=== PATIENT | female | born 1925 | race Caucasian/White ===

== ENCOUNTER 2016-12-21 20:47 | Inpatient (IN) | payer MEDICARE, MEDICAID ==
--- NOTE | 2016-12-21 22:03 | ER Document Report ---
ED General - General Chief Complaint: Shortness Of Breath Stated Complaint: SHORTNESS OF BREATH Cannot obtain history due to: Unstable vital signs, Altered mental status Notes: Patient is an 89-year-old female past medical history of COPD chronic nasal cannula oxygen dependence, dementia, blindness, hypertension who presents from her nursing facility with concerns of increased difficulty breathing and altered mental status. Family noted that the patient had increased work of breathing today when they were visiting her and staff noticed that patient to be less oriented than normal. She does have a history of similar presentations in the past. Family state that often she gets like this and she has a urinary tract infection. She does have a chronic indwelling catheter. Patient is otherwise unable to provide meaningful history, does not follow commands TRAVEL OUTSIDE OF THE [place] IN LAST 30 DAYS: No - Related Data Allergies/Adverse Reactions: codeine [Codeine] Allergy (Verified 09/06/16 22:58) Past Medical History - General Information source: Relative Cannot obtain history due to: Altered mental status - Social History Smoking Status: Former Smoker Frequency of alcohol use: None Drug Abuse: None Lives with: Intermediate Family History: Reviewed & Not Pertinent - Past Medical History Cardiac Medical History: Reports: Hx Hypertension Denies: Hx Congestive Heart Failure, Hx DVT, Hx Heart Attack, Hx Hypercholesterolemia, Hx Pulmonary Embolism Pulmonary Medical History: 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 Denies: Hx Seizures Endocrine Medical History: Denies: Hx Diabetes Mellitus Type 1, Hx Diabetes Mellitus Type 2, Hx Hyperthyroidism, Hx Hypothyroidism Renal/ Medical History: Denies: Hx Peritoneal Dialysis GI Medical History: Reports: Hx Gastroesophageal Reflux Disease, Hx Hiatal Hernia. Denies: Hx Cirrhosis, Hx Hepatitis Musculoskeltal Medical History: Reports Hx Arthritis Skin Medical History: Denies Hx Eczema, Denies Hx Psoriasis Psychiatric Medical History: Reports: Hx Depression - No suicidal or homicidal ideation. Infectious Medical History: Denies: Hx Hepatitis Past Surgical History: Reports: Hx Orthopedic Surgery - Hip - Immunizations Hx Diphtheria, Pertussis, Tetanus Vaccination: Yes Hx Pneumococcal Vaccination: 09/25/12 Review of Systems - Review of Systems -: Yes ROS unobtainable due to patient's medical condition Physical Exam - Vital signs Vitals: Pulse Ox 99 12/21/16 20:53 Interpretation: Tachycardic Notes: PHYSICAL EXAMINATION: GENERAL: Frail, elderly woman who appears stated age HEAD: Atraumatic, normocephalic. EYES: Pupils equal round and reactive to light, extraocular movements intact, sclera anicteric, conjunctiva are normal. ENT: nares patent, oropharynx clear without exudates. Moderately dry mucous membranes. NECK: Normal range of motion, supple without lymphadenopathy LUNGS: Breath sounds clear to auscultation bilaterally and equal. No wheezes rales or rhonchi. HEART: Regular tachycardia without murmurs ABDOMEN: Soft, nontender, normoactive bowel sounds. No guarding, no rebound. No masses appreciated. EXTREMITIES: no pitting or edema. No cyanosis. NEUROLOGICAL: Moves all extremities spontaneously but will not follow commands. She does not speak to me but does open her eyes when addressed PSYCH: Nonverbal SKIN: Warm, Dry, normal turgor, there is a well-healing wound of the left heel. No surrounding cellulitis or purulent drainage Course - Re-evaluation Re-evalutation: 12/21/160 When to assess the patient and found to be obtunded on BiPAP. Had not been notified about the critical nature of this patient prior to my assessment. Patient is unable to even state her name. Falling asleep despite multiple attempts to wake her up. She is moving air except well in all lung early without any significant wheezing. Primary concern is hypercarbic encephalopathy given clinical history. Patient is a very poor candidate for intubation given her chronic medical conditions and advanced age. Will proceed with labs including an arterial blood gas and reassess. Patient is critically ill. 12/21/16 22:36 ABG shows an elevated PCO2 but normal blood pH making this consistent with a chronic CO2 elevation and I do not believe at this point that her presentation is consistent with hypercarbic encephalopathy. Patient has had similar presentations in the past secondary to a pyelonephritis causing encephalopathy and her urine does look visibly cloudy. Catheter will be changed out and urine sample obtained. Will also obtain a CT of the head to evaluate for an acute intracranial bleed is the etiology of her altered mental status. BiPAP discontinued at this time and she will be transitioned back towards her home nasal cannula. 12/22/16 03:17 Workup has been unrevealing at this time with urinalysis being unremarkable, chest x-ray and CT the head likewise without notable findings. Patient has remained tachycardic despite fluid resuscitation with her heart rate generally resting in the 120s. Patient has not recently received any beta agonists that could be triggering. At this point given patient's initial concern EMS was shortness of breath in conjunction with her altered mental status. Will obtain a CT scan of the chest to evaluate for pneumonia that is not visible on chest x- ray. Regardless, patient will require admission given her altered mental status and ongoing tachycardia 12/22/16 04:11 I discussed the findings of this chest CT with the radiologist who does not note any acute findings to suggest an etiology of patient's tachycardia or altered mental status. At this point the exact etiology of patient's ongoing tachycardia and altered mental status is unclear despite an extensive workup. Her tachycardia likewise has been only minimally responsive to IV fluids and her urinalysis and chemistries do not suggest a significant component of dehydration. I discussed this case with the hospitalist Dr. Saavedra for admission given patient's tachycardia and ongoing altered mental status. She will be admitted. - Vital Signs Vital signs: Temp Pulse Resp BP Pulse Ox 24 H 99/53 L 95 12/21/16 23:01 12/22/16 03:36 12/22/16 03:36 - Laboratory Result Diagrams: 12/21/16 21:10 12/21/16 21:10 Laboratory results interpreted by me: 12/21/16 12/21/16 12/21/16 21:10 21:10 22:10 WBC 10.7 H RBC 3.62 L Hgb 10.2 L Hct 30.9 L RDW 15.1 H Plt Count 467 H Carbonic Acid 1.87 H ABG pCO2 62.1 H ABG pO2 72.5 L ABG HCO3 34.4 H ABG Total CO2 36.3 H ABG O2 Saturation 93.6 L Sodium 128.0 L Potassium 5.1 H Chloride 83 L Carbon Dioxide 34 H BUN 26 H Creatinine 0.44 L Glucose 141 H Urine Ketones Urine Blood Ur Leukocyte Esterase 12/22/16 01:02 WBC RBC Hgb Hct RDW Plt Count Carbonic Acid ABG pCO2 ABG pO2 ABG HCO3 ABG Total CO2 ABG O2 Saturation Sodium Potassium Chloride Carbon Dioxide BUN Creatinine Glucose Urine Ketones 20 H Urine Blood MODERATE H Ur Leukocyte Esterase TRACE H Critical Care Note - Critical Care Note Total time excluding time spent on procedures (mins): 40 Comments: Critical care time spent obtaining history from patient or surrogate, discussions with consultants, development of treatment plan with patient or surrogate, evaluation of patient's response to treatment, examination of patient , ordering and performing treatments and interventions, ordering and review of laboratory studies, re-evaluation of patient's condition, ordering and review of radiographic studies and review of old charts Discharge - Discharge Clinical Impression: COPD (chronic obstructive pulmonary disease) Qualifiers: COPD type: unspecified COPD Qualified Code(s): J44.9 - Chronic obstructive pulmonary disease, unspecified Altered mental status Qualifiers: Altered mental status type: unspecified Qualified Code(s): R41.82 - Altered mental status, unspecified Condition: Fair Disposition: ADMITTED INPATIENT Admitting Provider: [facility] Admitted: Telemetry
[2016-12-21] MEDS ORDERED: ALBUTEROL SULFATE 0.083% NEB 2.5 MG/3 ML AMPUL NEB ONE ×2 (22:04→22:24)
[2016-12-21 22:14] LABS: ABSOLUTE EOSINOPHILS # (AUTO) 0.1 10^3/uL (0.0-0.6); ABSOLUTE LYMPHOCYTES (AUTO) 2.5 10^3/uL (0.5-4.7); ABSOLUTE MONOCYTES (AUTO) 0.8 10^3/uL (0.1-1.4); ABSOLUTE NEUT (AUTO) 7.3 10^3/uL (1.7-8.2); BASOPHILS % (AUTO) 0.4 % (0-2); EOSINOPHILS % (AUTO) 1.2 % (0-6); HEMATOCRIT 30.9 % (36.0-47.0); HEMOGLOBIN 10.2 g/dL (12.0-15.5); HGB HCT DIFFERENCE -0.3; LYMPHOCYTES % (AUTO) 22.9 % (13-45); MEAN CORPUSCULAR HEMOGLOBIN 28.3 pg (27.0-33.4); MEAN CORPUSCULAR HGB CONC 33.1 g/dL (32.0-36.0); MEAN CORPUSCULAR VOLUME 86 fl (80-97); MONOCYTES % (AUTO) 7.6 % (3-13); RED BLOOD COUNT 3.62 10^6/uL (3.72-5.28); RED CELL DISTRIBUTION WIDTH 15.1 % (11.5-14.0); SEGMENTED NEUTROPHILS % (AUTO) 67.9 % (42-78); WHITE BLOOD COUNT 10.7 10^3/uL (4.0-10.5)
[2016-12-21 22:20] LABS: ALANINE AMINOTRANSFERASE 32 U/L (9-52); ALBUMIN 4.1 g/dL (3.5-5.0); ALKALINE PHOSPHATASE 75 U/L (38-126); ANION GAP 11 (5-19); ASPARTATE AMINO TRANSFERASE 30 U/L (14-36); BILIRUBIN,DIRECT 0.3 mg/dL (0.0-0.4); BILIRUBIN,TOTAL 0.5 mg/dL (0.2-1.3); BLOOD UREA NITROGEN 26 mg/dL (7-20); CALCIUM 10.2 mg/dL (8.4-10.2); CARBON DIOXIDE 34 mmol/L (22-30); CHLORIDE 83 mmol/L (98-107); CREATININE RESULT 0.44 mg/dL (0.52-1.25); GLUCOSE 141 mg/dL (75-110); POTASSIUM 5.1 mmol/L (3.6-5.0); TOTAL PROTEIN 6.4 g/dL (6.3-8.2)
[2016-12-21 22:24] LABS: ARTERIAL BLOOD BASE EXCESS 7.4 mmol/L; ARTERIAL BLOOD O2 SATURATION 93.6 % (94-98)
[2016-12-22] MEDS ORDERED: NORMAL SALINE 1000 ML 1,000 ML IV ONE ×2 (00:02→02:02)
[2016-12-22 01:32] LABS: APPEARANCE,URINE SLIGHTLY-CLOUDY; BILIRUBIN,URINE NEGATIVE (NEGATIVE); GLUCOSE, URINE NEGATIVE (NEGATIVE); KETONES,URINE 20 mg/dL (NEGATIVE); LEUKOCYTE ESTERASE,URINE TRACE (NEGATIVE); NITRITE,URINE NEGATIVE (NEGATIVE); PROTEIN,URINE NEGATIVE (NEGATIVE); URINE SPECIFIC GRAVITY 1.012; UROBILINOGEN,URINE NEGATIVE mg/dL (<2.0)
[2016-12-22] MEDS ORDERED: PIPERACILLIN/TAZOBACTAM 3.375 GM VIAL IV ONE (03:14)
[2016-12-22] MEDS ORDERED: LACTULOSE SYRUP 20 GM/30 ML UDCUP PO ONE (04:30)
[2016-12-22] MEDS ORDERED: LACTULOSE SYRUP 20 GM/30 ML UDCUP PR ONE (04:30)
[2016-12-22] MEDS ORDERED: ONDANSETRON HCL INJ/PF 4 MG/2 ML SDV IV PRN (05:41)
[2016-12-22] MEDS ORDERED: MAGNESIUM HYDROXIDE SUSP 30 ML UDCUP PO ONE (06:00)
[2016-12-22] MEDS: HEPARIN SOD (PORCINE) 5,000 UNIT/ML 1 ML SYRINGE SUBCUT SCH ×3 (07:58→21:41)
[2016-12-22] MEDS ORDERED: BUDESONIDE/FORMOTEROL 80-4.5 MCG 60 PUFF/6.9 GM MDI IH SCH (08:00)
--- NOTE | 2016-12-22 08:18 | EKG REPORT ---
SEVERITY:- ABNORMAL ECG - SINUS TACHYCARDIA LEFT VENTRICULAR HYPERTROPHY : Confirmed by: Matilde Hansen 22-Dec-2016 08:17:09
[2016-12-22] MEDS: IPRATROPIUM/ALBUTEROL 0.5-2.5 MG/3 ML AMPUL NEB SCH ×3 (08:38→23:45)
[2016-12-22] MEDS: TIOTROPIUM BROMIDE DPI 5 CAP/KIT (18 MCG/CAP) IH SCH (09:34)
[2016-12-22] MEDS: DOCUSATE SODIUM 100 MG CAPSULE PO SCH ×2 (09:34→17:32)
[2016-12-22] MEDS ORDERED: TIOTROPIUM BROMIDE 2.5 MCG IH SCH (10:00)
--- NOTE | 2016-12-22 11:37 | PDOC PROGRESS REPORT ---
Subjective Progress Note for:: 12/22/16 Subjective:: Patient is somnolent but will arouse to painful stimuli. She was not wearing her BiPAP the time my initial exam. Physical Exam Vital Signs: Temp Pulse Resp BP Pulse Ox 98.3 F 77 20 117/45 L 98 12/22/16 07:00 12/22/16 08:35 12/22/16 08:35 12/22/16 07:00 12/22/16 08:35 Intake & Output 12/21/16 12/22/16 12/23/16 06:59 06:59 06:59 Weight 56.1 kg General appearance: PRESENT: mild distress Eye exam: PRESENT: conjunctiva pink. ABSENT: scleral icterus Mouth exam: PRESENT: moist, tongue midline Neck exam: ABSENT: JVD Respiratory exam: PRESENT: rhonchi - Coarse rhonchi bilaterally.. ABSENT: rales , wheezes Cardiovascular exam: PRESENT: RRR. ABSENT: diastolic murmur, rubs, systolic murmur GI/Abdominal exam: PRESENT: normal bowel sounds, soft. ABSENT: distended, guarding, mass, organolmegaly, rebound, tenderness Extremities exam: ABSENT: calf tenderness, clubbing, pedal edema Neurological exam: PRESENT: alert, awake, oriented to person, oriented to place , oriented to time, oriented to situation, CN II-XII grossly intact. ABSENT: motor sensory deficit Psychiatric exam: PRESENT: appropriate affect Skin exam: PRESENT: dry, intact, warm. ABSENT: cyanosis, rash Results Impressions: Chest X-Ray 12/21/16 22:02 IMPRESSION: NO ACUTE RADIOGRAPHIC FINDING IN THE CHEST. Head CT 12/21/16 22:31 IMPRESSION: No acute findings. Stable left thalamic lacunar infarct. Chest CT 12/22/16 02:00 IMPRESSION: 1. Worsened moderate L1 anterior compression deformity. 2. Chronic 4.1 cm and descending thoracic aortic aneurysm. 3. Chronic right hemidiaphragmatic elevation. 4. Bilateral lower lobar scar-fibrosis without suspicious interval change since June 2016. 5. A previously described suspicious right renal mass is not included in the imaging field compared with prior CT from June 2016. Assessment & Plan - Diagnosis (1) Hypercapnic respiratory failure Is this a current diagnosis for this admission?: YesPlan: The patient had taken off her BiPAP shortly before I saw her. She was difficult to arouse. We we'll restart her BiPAP and monitor. The cause is most likely related to her acute COPD. (2) Encephalopathy Is this a current diagnosis for this admission?: YesPlan: Most likely secondary to her COPD. (3) COPD (chronic obstructive pulmonary disease) Qualifiers: COPD type: unspecified COPD Qualified Code(s): J44.9 - Chronic obstructive pulmonary disease, unspecified Is this a current diagnosis for this admission?: YesPlan: Continue with nebulizers and BiPAP as needed. (4) Hyponatremia Is this a current diagnosis for this admission?: Yes (5) Chronic indwelling Cade catheter Is this a current diagnosis for this admission?: Yes (6) Hyperkalemia Is this a current diagnosis for this admission?: YesPlan: We'll continue to monitor. (7) Hypertension Qualifiers: Hypertension type: essential hypertension Qualified Code(s): I10 - Essential (primary) hypertension Is this a current diagnosis for this admission?: YesPlan: Patient's blood pressure has been on the low end of normal. (8) Lung mass Is this a current diagnosis for this admission?: Yes (9) Do not resuscitate Is this a current diagnosis for this admission?: Yes - Time Time Spent with patient: 25-34 minutes - Inpatient Certification Medical Necessity: Need Close Monitoring Due to Risk of Patient Decompensation
[2016-12-22] MEDS: BUDESONIDE/FORMOTEROL 80-4.5 MCG 60 PUFF/6.9 GM MDI IH SCH (21:44)
[2016-12-23] MEDS: ACETAMINOPHEN 325 MG TABLET PO PRN (04:54)
[2016-12-23] MEDS: HEPARIN SOD (PORCINE) 5,000 UNIT/ML 1 ML SYRINGE SUBCUT SCH ×3 (05:24→21:34)
[2016-12-23 06:09] LABS: ABSOLUTE EOSINOPHILS # (AUTO) 0.1 10^3/uL (0.0-0.6); ABSOLUTE LYMPHOCYTES (AUTO) 1.6 10^3/uL (0.5-4.7); ABSOLUTE MONOCYTES (AUTO) 0.7 10^3/uL (0.1-1.4); BASOPHILS % (AUTO) 0.3 % (0-2); EOSINOPHILS % (AUTO) 0.8 % (0-6); HEMATOCRIT 23.6 % (36.0-47.0); HGB HCT DIFFERENCE 0.7; LYMPHOCYTES % (AUTO) 18.9 % (13-45); MEAN CORPUSCULAR HEMOGLOBIN 29.2 pg (27.0-33.4); MEAN CORPUSCULAR HGB CONC 34.2 g/dL (32.0-36.0); MEAN CORPUSCULAR VOLUME 86 fl (80-97); MONOCYTES % (AUTO) 8.2 % (3-13); RED BLOOD COUNT 2.76 10^6/uL (3.72-5.28); RED CELL DISTRIBUTION WIDTH 15.1 % (11.5-14.0); SEGMENTED NEUTROPHILS % (AUTO) 71.8 % (42-78); WHITE BLOOD COUNT 8.4 10^3/uL (4.0-10.5)
[2016-12-23 06:14] LABS: ANION GAP 9 (5-19); BLOOD UREA NITROGEN 19 mg/dL (7-20); CALCIUM 9.9 mg/dL (8.4-10.2); CARBON DIOXIDE 34 mmol/L (22-30); CHLORIDE 91 mmol/L (98-107); CREATININE RESULT 0.42 mg/dL (0.52-1.25); GLUCOSE 115 mg/dL (75-110); POTASSIUM 4.4 mmol/L (3.6-5.0); SODIUM 133.8 mmol/L (137-145)
[2016-12-23 06:16] LABS: HEMOGLOBIN 8.1 g/dL (12.0-15.5)
[2016-12-23] MEDS: IPRATROPIUM/ALBUTEROL 0.5-2.5 MG/3 ML AMPUL NEB SCH ×3 (08:25→23:37)
[2016-12-23] MEDS: TIOTROPIUM BROMIDE DPI 5 CAP/KIT (18 MCG/CAP) IH SCH (09:38)
[2016-12-23] MEDS: BUDESONIDE/FORMOTEROL 80-4.5 MCG 60 PUFF/6.9 GM MDI IH SCH ×2 (09:38→21:34)
[2016-12-23] MEDS: DOCUSATE SODIUM 100 MG CAPSULE PO SCH ×2 (09:38→18:05)
[2016-12-23] MEDS: BUTALB/ACETAMINOPHEN/CAFFEINE 1 TAB EACH PO PRN ×2 (09:40→18:08)
--- NOTE | 2016-12-23 10:23 | PDOC PROGRESS REPORT ---
Subjective Progress Note for:: 12/23/16 Subjective:: Patient is more awake today and complains of a headache. Physical Exam Vital Signs: Temp Pulse Resp BP Pulse Ox 97.7 F 105 H 20 136/63 H 99 12/23/16 03:59 12/23/16 08:25 12/23/16 08:25 12/23/16 03:59 12/23/16 08:25 Intake & Output 12/22/16 12/23/16 12/24/16 06:59 06:59 06:59 Intake Total 603 Output Total 1000 Balance -397 Weight 56 kg General appearance: PRESENT: no acute distress Eye exam: PRESENT: conjunctiva pink. ABSENT: scleral icterus Mouth exam: PRESENT: moist, tongue midline Neck exam: ABSENT: JVD Respiratory exam: PRESENT: wheezes - Scattered expiratory wheezes. ABSENT: rales, rhonchi Cardiovascular exam: PRESENT: RRR. ABSENT: diastolic murmur, rubs, systolic murmur GI/Abdominal exam: PRESENT: normal bowel sounds, soft. ABSENT: distended, guarding, mass, organolmegaly, rebound, tenderness Extremities exam: ABSENT: calf tenderness, clubbing, pedal edema Neurological exam: PRESENT: alert, awake, oriented to person, oriented to place , oriented to time, oriented to situation, CN II-XII grossly intact. ABSENT: motor sensory deficit Psychiatric exam: PRESENT: appropriate affect Skin exam: PRESENT: dry, intact, warm. ABSENT: cyanosis, rash Results Laboratory Results: 12/23/16 04:48 12/23/16 04:48 12/23/16 12/23/16 04:48 04:48 WBC 8.4 RBC 2.76 L Hgb 8.1 L D Hct 23.6 L MCV 86 MCH 29.2 MCHC 34.2 RDW 15.1 H Plt Count 404 Seg Neutrophils % 71.8 Lymphocytes % 18.9 Monocytes % 8.2 Eosinophils % 0.8 Basophils % 0.3 Absolute Neutrophils 6.0 Absolute Lymphocytes 1.6 Absolute Monocytes 0.7 Absolute Eosinophils 0.1 Absolute Basophils 0.0 Sodium 133.8 L Potassium 4.4 Chloride 91 L Carbon Dioxide 34 H Anion Gap 9 BUN 19 Creatinine 0.42 L Est GFR ( Amer) > 60 Est GFR (Non-Af Amer) > 60 Glucose 115 H Calcium 9.9 Impressions: Chest X-Ray 12/21/16 22:02 IMPRESSION: NO ACUTE RADIOGRAPHIC FINDING IN THE CHEST. Head CT 12/21/16 22:31 IMPRESSION: No acute findings. Stable left thalamic lacunar infarct. Chest CT 12/22/16 02:00 IMPRESSION: 1. Worsened moderate L1 anterior compression deformity. 2. Chronic 4.1 cm and descending thoracic aortic aneurysm. 3. Chronic right hemidiaphragmatic elevation. 4. Bilateral lower lobar scar-fibrosis without suspicious interval change since June 2016. 5. A previously described suspicious right renal mass is not included in the imaging field compared with prior CT from June 2016. Assessment & Plan - Diagnosis (1) Hypercapnic respiratory failure Is this a current diagnosis for this admission?: YesPlan: The cause is most likely related to her acute COPD. (2) Encephalopathy Is this a current diagnosis for this admission?: YesPlan: Most likely secondary to her COPD. It has improved from yesterday. She is much more alert today. (3) COPD (chronic obstructive pulmonary disease) Qualifiers: COPD type: unspecified COPD Qualified Code(s): J44.9 - Chronic obstructive pulmonary disease, unspecified Is this a current diagnosis for this admission?: YesPlan: Continue with nebulizers and BiPAP as needed. (4) Hyponatremia Is this a current diagnosis for this admission?: YesPlan: Improving. (5) Chronic indwelling Cade catheter Is this a current diagnosis for this admission?: Yes (6) Hyperkalemia Is this a current diagnosis for this admission?: YesPlan: We'll continue to monitor. (7) Hypertension Qualifiers: Hypertension type: essential hypertension Qualified Code(s): I10 - Essential (primary) hypertension Is this a current diagnosis for this admission?: YesPlan: Patient's blood pressure has been on the low end of normal. (8) Lung mass Is this a current diagnosis for this admission?: Yes (9) Do not resuscitate Is this a current diagnosis for this admission?: Yes (10) Anemia Is this a current diagnosis for this admission?: Yes - Time Time Spent with patient: 25-34 minutes - Inpatient Certification Medical Necessity: Need Close Monitoring Due to Risk of Patient Decompensation
[2016-12-23] MEDS: CARBOXYMETHYLCELLULOSE SOD 0.5% 0.4 ML DROPERETTE OU PRN (14:31)
[2016-12-24 04:46] LABS: ABSOLUTE EOSINOPHILS # (AUTO) 0.2 10^3/uL (0.0-0.6); ABSOLUTE LYMPHOCYTES (AUTO) 1.8 10^3/uL (0.5-4.7); ABSOLUTE MONOCYTES (AUTO) 0.5 10^3/uL (0.1-1.4); ABSOLUTE NEUT (AUTO) 3.6 10^3/uL (1.7-8.2); BASOPHILS % (AUTO) 0.5 % (0-2); EOSINOPHILS % (AUTO) 3.1 % (0-6); HEMATOCRIT 24.5 % (36.0-47.0); HEMOGLOBIN 8.2 g/dL (12.0-15.5); HGB HCT DIFFERENCE 0.1; LYMPHOCYTES % (AUTO) 29.8 % (13-45); MEAN CORPUSCULAR HEMOGLOBIN 28.8 pg (27.0-33.4); MEAN CORPUSCULAR HGB CONC 33.6 g/dL (32.0-36.0); MEAN CORPUSCULAR VOLUME 86 fl (80-97); MONOCYTES % (AUTO) 7.6 % (3-13); RED BLOOD COUNT 2.87 10^6/uL (3.72-5.28); RED CELL DISTRIBUTION WIDTH 15.3 % (11.5-14.0); WHITE BLOOD COUNT 6.1 10^3/uL (4.0-10.5)
[2016-12-24 04:55] LABS: ANION GAP 10 (5-19); BLOOD UREA NITROGEN 12 mg/dL (7-20); CALCIUM 9.7 mg/dL (8.4-10.2); CARBON DIOXIDE 33 mmol/L (22-30); CHLORIDE 92 mmol/L (98-107); CREATININE RESULT 0.44 mg/dL (0.52-1.25); GLUCOSE 98 mg/dL (75-110); POTASSIUM 4.2 mmol/L (3.6-5.0); SODIUM 135.3 mmol/L (137-145)
[2016-12-24] MEDS: HEPARIN SOD (PORCINE) 5,000 UNIT/ML 1 ML SYRINGE SUBCUT SCH ×3 (05:14→23:20)
[2016-12-24] MEDS: BUTALB/ACETAMINOPHEN/CAFFEINE 1 TAB EACH PO PRN ×2 (09:29→17:54)
[2016-12-24] MEDS: IPRATROPIUM/ALBUTEROL 0.5-2.5 MG/3 ML AMPUL NEB SCH ×3 (09:29→23:03)
[2016-12-24] MEDS: BUDESONIDE/FORMOTEROL 80-4.5 MCG 60 PUFF/6.9 GM MDI IH SCH ×2 (09:29→23:20)
[2016-12-24] MEDS: TIOTROPIUM BROMIDE DPI 5 CAP/KIT (18 MCG/CAP) IH SCH (09:29)
[2016-12-24] MEDS: DOCUSATE SODIUM 100 MG CAPSULE PO SCH ×2 (09:31→17:49)
--- NOTE | 2016-12-24 11:02 | PDOC PROGRESS REPORT ---
Subjective Progress Note for:: 12/24/16 Subjective:: Patient complains of a headache. Physical Exam Vital Signs: Temp Pulse Resp BP Pulse Ox 97.5 F 88 18 138/67 H 100 12/24/16 08:02 12/24/16 08:02 12/24/16 08:02 12/24/16 04:56 12/24/16 08:02 Intake & Output 12/23/16 12/24/16 12/25/16 06:59 06:59 06:59 Intake Total 603 476 Output Total 1000 2500 Balance -397 -2023 Weight 56 kg 65.9 kg General appearance: PRESENT: no acute distress Eye exam: PRESENT: conjunctiva pink. ABSENT: scleral icterus Mouth exam: PRESENT: moist, tongue midline Neck exam: ABSENT: JVD Respiratory exam: PRESENT: rhonchi - Scattered bilateral rhonchi. ABSENT: rales , wheezes Cardiovascular exam: PRESENT: RRR. ABSENT: diastolic murmur, rubs, systolic murmur GI/Abdominal exam: PRESENT: normal bowel sounds, soft. ABSENT: distended, guarding, mass, organolmegaly, rebound, tenderness Extremities exam: ABSENT: calf tenderness, clubbing, pedal edema Neurological exam: PRESENT: alert, awake, oriented to person, oriented to place Psychiatric exam: PRESENT: appropriate affect Skin exam: PRESENT: dry, intact, warm. ABSENT: cyanosis, rash Results Laboratory Results: 12/24/16 04:18 12/24/16 04:18 12/24/16 12/24/16 04:18 04:18 WBC 6.1 RBC 2.87 L Hgb 8.2 L Hct 24.5 L MCV 86 MCH 28.8 MCHC 33.6 RDW 15.3 H Plt Count 374 Seg Neutrophils % 59.0 Lymphocytes % 29.8 Monocytes % 7.6 Eosinophils % 3.1 Basophils % 0.5 Absolute Neutrophils 3.6 Absolute Lymphocytes 1.8 Absolute Monocytes 0.5 Absolute Eosinophils 0.2 Absolute Basophils 0.0 Sodium 135.3 L Potassium 4.2 Chloride 92 L Carbon Dioxide 33 H Anion Gap 10 BUN 12 Creatinine 0.44 L Est GFR ( Amer) > 60 Est GFR (Non-Af Amer) > 60 Glucose 98 Calcium 9.7 Impressions: Chest X-Ray 12/21/16 22:02 IMPRESSION: NO ACUTE RADIOGRAPHIC FINDING IN THE CHEST. Head CT 12/21/16 22:31 IMPRESSION: No acute findings. Stable left thalamic lacunar infarct. Chest CT 12/22/16 02:00 IMPRESSION: 1. Worsened moderate L1 anterior compression deformity. 2. Chronic 4.1 cm and descending thoracic aortic aneurysm. 3. Chronic right hemidiaphragmatic elevation. 4. Bilateral lower lobar scar-fibrosis without suspicious interval change since June 2016. 5. A previously described suspicious right renal mass is not included in the imaging field compared with prior CT from June 2016. Assessment & Plan - Diagnosis (1) Hypercapnic respiratory failure Is this a current diagnosis for this admission?: YesPlan: The cause is most likely related to her acute COPD. (2) Encephalopathy Is this a current diagnosis for this admission?: YesPlan: Most likely secondary to her COPD. It has resolved. (3) COPD (chronic obstructive pulmonary disease) Qualifiers: COPD type: unspecified COPD Qualified Code(s): J44.9 - Chronic obstructive pulmonary disease, unspecified Is this a current diagnosis for this admission?: YesPlan: Continue with nebulizers and BiPAP as needed. (4) Hyponatremia Is this a current diagnosis for this admission?: YesPlan: Improving. (5) Chronic indwelling Cade catheter Is this a current diagnosis for this admission?: Yes (6) Hyperkalemia Is this a current diagnosis for this admission?: YesPlan: Resolved. (7) Hypertension Qualifiers: Hypertension type: essential hypertension Qualified Code(s): I10 - Essential (primary) hypertension Is this a current diagnosis for this admission?: YesPlan: Patient's blood pressure has been on the low end of normal. (8) Lung mass Is this a current diagnosis for this admission?: Yes (9) Do not resuscitate Is this a current diagnosis for this admission?: Yes (10) Anemia Is this a current diagnosis for this admission?: Yes - Time Time Spent with patient: 25-34 minutes - Inpatient Certification Medical Necessity: Need Close Monitoring Due to Risk of Patient Decompensation
[2016-12-25 05:28] LABS: ABSOLUTE EOSINOPHILS # (AUTO) 0.3 10^3/uL (0.0-0.6); ABSOLUTE LYMPHOCYTES (AUTO) 1.7 10^3/uL (0.5-4.7); ABSOLUTE MONOCYTES (AUTO) 0.6 10^3/uL (0.1-1.4); BASOPHILS % (AUTO) 0.3 % (0-2); EOSINOPHILS % (AUTO) 4.1 % (0-6); HEMATOCRIT 25.6 % (36.0-47.0); HEMOGLOBIN 8.5 g/dL (12.0-15.5); HGB HCT DIFFERENCE -0.1; MEAN CORPUSCULAR HEMOGLOBIN 28.1 pg (27.0-33.4); MEAN CORPUSCULAR VOLUME 85 fl (80-97); MONOCYTES % (AUTO) 8.5 % (3-13); RED BLOOD COUNT 3.01 10^6/uL (3.72-5.28); RED CELL DISTRIBUTION WIDTH 15.6 % (11.5-14.0); SEGMENTED NEUTROPHILS % (AUTO) 61.1 % (42-78); WHITE BLOOD COUNT 6.5 10^3/uL (4.0-10.5)
[2016-12-25 05:50] LABS: ANION GAP 11 (5-19); BLOOD UREA NITROGEN 10 mg/dL (7-20); CALCIUM 9.8 mg/dL (8.4-10.2); CARBON DIOXIDE 34 mmol/L (22-30); CHLORIDE 91 mmol/L (98-107); CREATININE RESULT 0.52 mg/dL (0.52-1.25); GLUCOSE 99 mg/dL (75-110); POTASSIUM 4.5 mmol/L (3.6-5.0); SODIUM 135.6 mmol/L (137-145)
[2016-12-25] MEDS: HEPARIN SOD (PORCINE) 5,000 UNIT/ML 1 ML SYRINGE SUBCUT SCH ×2 (06:10→13:27)
[2016-12-25] MEDS: BUTALB/ACETAMINOPHEN/CAFFEINE 1 TAB EACH PO PRN ×2 (08:40→17:19)
[2016-12-25] MEDS: DOCUSATE SODIUM 100 MG CAPSULE PO SCH ×2 (09:00→17:14)
[2016-12-25] MEDS: TIOTROPIUM BROMIDE DPI 5 CAP/KIT (18 MCG/CAP) IH SCH (09:01)
[2016-12-25] MEDS: BUDESONIDE/FORMOTEROL 80-4.5 MCG 60 PUFF/6.9 GM MDI IH SCH (09:01)
[2016-12-25] MEDS: IPRATROPIUM/ALBUTEROL 0.5-2.5 MG/3 ML AMPUL NEB SCH ×3 (09:11→23:46)
--- NOTE | 2016-12-25 11:30 | PDOC PROGRESS REPORT ---
Subjective Progress Note for:: 12/25/16 Subjective:: Patient continues to complain of a headache. Physical Exam Vital Signs: Temp Pulse Resp BP Pulse Ox 97.9 F 89 16 144/64 H 98 12/25/16 00:00 12/25/16 09:12 12/25/16 09:12 12/25/16 00:00 12/25/16 09:12 Intake & Output 12/24/16 12/25/16 12/26/16 06:59 06:59 06:59 Intake Total 476 632 Output Total 2500 2200 Balance -2023 Weight 65.9 kg 65.9 kg General appearance: PRESENT: no acute distress Eye exam: PRESENT: conjunctiva pink Mouth exam: PRESENT: moist, tongue midline Neck exam: ABSENT: JVD Respiratory exam: PRESENT: wheezes. ABSENT: rales, rhonchi Cardiovascular exam: PRESENT: RRR. ABSENT: diastolic murmur, rubs, systolic murmur GI/Abdominal exam: PRESENT: normal bowel sounds, soft. ABSENT: distended, guarding, mass, organolmegaly, rebound, tenderness Extremities exam: ABSENT: calf tenderness, clubbing, pedal edema Neurological exam: PRESENT: alert, awake, oriented to person, oriented to place , oriented to time Psychiatric exam: PRESENT: appropriate affect Skin exam: PRESENT: dry, intact, warm. ABSENT: cyanosis, rash Results Laboratory Results: 12/25/16 05:12 12/25/16 05:12 12/25/16 12/25/16 05:12 05:12 WBC 6.5 RBC 3.01 L Hgb 8.5 L Hct 25.6 L MCV 85 MCH 28.1 MCHC 33.0 RDW 15.6 H Plt Count 369 Seg Neutrophils % 61.1 Lymphocytes % 26.0 Monocytes % 8.5 Eosinophils % 4.1 Basophils % 0.3 Absolute Neutrophils 4.0 Absolute Lymphocytes 1.7 Absolute Monocytes 0.6 Absolute Eosinophils 0.3 Absolute Basophils 0.0 Sodium 135.6 L Potassium 4.5 Chloride 91 L Carbon Dioxide 34 H Anion Gap 11 BUN 10 Creatinine 0.52 Est GFR ( Amer) > 60 Est GFR (Non-Af Amer) > 60 Glucose 99 Calcium 9.8 Impressions: Chest X-Ray 12/21/16 22:02 IMPRESSION: NO ACUTE RADIOGRAPHIC FINDING IN THE CHEST. Head CT 12/21/16 22:31 IMPRESSION: No acute findings. Stable left thalamic lacunar infarct. Chest CT 12/22/16 02:00 IMPRESSION: 1. Worsened moderate L1 anterior compression deformity. 2. Chronic 4.1 cm and descending thoracic aortic aneurysm. 3. Chronic right hemidiaphragmatic elevation. 4. Bilateral lower lobar scar-fibrosis without suspicious interval change since June 2016. 5. A previously described suspicious right renal mass is not included in the imaging field compared with prior CT from June 2016. Assessment & Plan - Diagnosis (1) Hypercapnic respiratory failure Is this a current diagnosis for this admission?: YesPlan: The cause is most likely related to her acute COPD. (2) Encephalopathy Is this a current diagnosis for this admission?: YesPlan: Most likely secondary to her COPD. It has resolved. (3) COPD (chronic obstructive pulmonary disease) Qualifiers: COPD type: unspecified COPD Qualified Code(s): J44.9 - Chronic obstructive pulmonary disease, unspecified Is this a current diagnosis for this admission?: YesPlan: Continue with nebulizers and BiPAP as needed. (4) Hyponatremia Is this a current diagnosis for this admission?: YesPlan: Stable (5) Chronic indwelling Cade catheter Is this a current diagnosis for this admission?: Yes (6) Hyperkalemia Is this a current diagnosis for this admission?: YesPlan: Resolved. (7) Hypertension Qualifiers: Hypertension type: essential hypertension Qualified Code(s): I10 - Essential (primary) hypertension Is this a current diagnosis for this admission?: YesPlan: Patient's blood pressure has been on the low end of normal. (8) Lung mass Is this a current diagnosis for this admission?: Yes (9) Do not resuscitate Is this a current diagnosis for this admission?: Yes (10) Anemia Is this a current diagnosis for this admission?: Yes - Time Time Spent with patient: 25-34 minutes - Inpatient Certification Medical Necessity: Need Close Monitoring Due to Risk of Patient Decompensation
[2016-12-26] MEDS: HEPARIN SOD (PORCINE) 5,000 UNIT/ML 1 ML SYRINGE SUBCUT SCH ×3 (00:05→14:26)
[2016-12-26] MEDS: BUDESONIDE/FORMOTEROL 80-4.5 MCG 60 PUFF/6.9 GM MDI IH SCH ×2 (00:05→09:05)
[2016-12-26 04:08] VITALS: BP 139/69
[2016-12-26 04:46] LABS: ABSOLUTE BASOPHILS # (AUTO) 0.1 10^3/uL (0.0-0.2); ABSOLUTE EOSINOPHILS # (AUTO) 0.4 10^3/uL (0.0-0.6); ABSOLUTE LYMPHOCYTES (AUTO) 1.8 10^3/uL (0.5-4.7); ABSOLUTE MONOCYTES (AUTO) 0.5 10^3/uL (0.1-1.4); ABSOLUTE NEUT (AUTO) 4.9 10^3/uL (1.7-8.2); EOSINOPHILS % (AUTO) 4.7 % (0-6); HEMATOCRIT 25.9 % (36.0-47.0); HEMOGLOBIN 8.6 g/dL (12.0-15.5); HGB HCT DIFFERENCE -0.1; LYMPHOCYTES % (AUTO) 23.5 % (13-45); MEAN CORPUSCULAR HEMOGLOBIN 28.3 pg (27.0-33.4); MEAN CORPUSCULAR HGB CONC 33.1 g/dL (32.0-36.0); MEAN CORPUSCULAR VOLUME 85 fl (80-97); MONOCYTES % (AUTO) 6.9 % (3-13); RED BLOOD COUNT 3.03 10^6/uL (3.72-5.28); RED CELL DISTRIBUTION WIDTH 15.9 % (11.5-14.0); SEGMENTED NEUTROPHILS % (AUTO) 63.9 % (42-78); WHITE BLOOD COUNT 7.7 10^3/uL (4.0-10.5)
[2016-12-26 05:13] LABS: ANION GAP 10 (5-19); BLOOD UREA NITROGEN 8 mg/dL (7-20); CALCIUM 9.6 mg/dL (8.4-10.2); CARBON DIOXIDE 30 mmol/L (22-30); CHLORIDE 90 mmol/L (98-107); CREATININE RESULT 0.42 mg/dL (0.52-1.25); GLUCOSE 104 mg/dL (75-110); POTASSIUM 4.2 mmol/L (3.6-5.0); SODIUM 130.4 mmol/L (137-145)
[2016-12-26] MEDS: ACETAMINOPHEN 325 MG TABLET PO PRN (06:03)
[2016-12-26] MEDS: IPRATROPIUM/ALBUTEROL 0.5-2.5 MG/3 ML AMPUL NEB SCH (08:15)
[2016-12-26] MEDS: TIOTROPIUM BROMIDE DPI 5 CAP/KIT (18 MCG/CAP) IH SCH (09:04)
[2016-12-26] MEDS: DOCUSATE SODIUM 100 MG CAPSULE PO SCH (09:04)
[2016-12-26] MEDS: BUTALB/ACETAMINOPHEN/CAFFEINE 1 TAB EACH PO PRN ×2 (09:18→14:25)
--- NOTE | 2016-12-26 10:15 | PDOC TRANSFER SUMMARY ---
General - Admit/Disc Date/PCP Admission Date/Primary Care Provider: 12/22/16 05:41 Discharge Date: 12/26/16 - Discharge Diagnosis (1) Hypercapnic respiratory failure Is this a current diagnosis for this admission?: YesSummary: Resolved. Secondary to COPD. (2) Encephalopathy Is this a current diagnosis for this admission?: YesSummary: Secondary to COPD. This has resolved. (3) COPD (chronic obstructive pulmonary disease) Is this a current diagnosis for this admission?: YesSummary: Treated with BiPAP with resolution of her encephalopathy. (4) Hyponatremia Is this a current diagnosis for this admission?: Yes (5) Chronic indwelling Cade catheter Is this a current diagnosis for this admission?: Yes (6) Hyperkalemia Is this a current diagnosis for this admission?: YesSummary: Resolved (7) Hypertension Is this a current diagnosis for this admission?: Yes (8) Lung mass Is this a current diagnosis for this admission?: Yes (9) Do not resuscitate Is this a current diagnosis for this admission?: Yes (10) Anemia Is this a current diagnosis for this admission?: Yes - Additional Information Resuscitation Status: Do Not Resuscitate Discharge Diet: Cardiac Discharge Activity: Activity As Tolerated Home Medications: Acetaminophen [Tylenol 325 mg Tablet] 650 mg PO Q4HP PRN 12/22/16 Albuterol Sulfate [Ventolin 0.083% Neb 2.5 mg/3 mL Ampul] 3 ml NEB RTQ4HP PRN Aspirin [Aspirin 81 mg Chewable Tablet] 81 mg PO DAILY 12/22/16 Budesonide/Formoterol Fumarate [Symbicort HFA 80-4.5 mcg Inhaler 6.9 gm] 2 puff IH BID 12/22/16 Diphenhydramine HCl [Benadryl 25 mg Capsule] 25 mg PO Q8HP PRN 12/22/16 Docusate Sodium [Colace 100 mg Capsule] 100 mg PO DAILY 12/22/16 Lactulose [Constulose] 30 ml PO QHS 12/22/16 Metoprolol Tartrate [Lopressor 25 mg Tablet] 25 mg PO Q12 12/22/16 Mirtazapine [Remeron 15 mg Tablet] 7.5 mg PO QHS 12/22/16 Multivits-Min/Iron/FA/Lutein [Centrum Silver Women Tablet] 1 tab PO DAILY Omeprazole 20 mg PO BID 12/22/16 Prednisone [Deltasone 5 mg Tablet] 5 mg PO DAILY 12/22/16 Tiotropium [place] [Spiriva Handihaler 5 Cap/Kit (18 Mcg/Cap)] 1 puff IH DAILY 12/22/16 Alprazolam [Xanax 0.5 mg Tablet] 0.5 mg PO DAILYP PRN #20 tablet 12/26/16 Tramadol HCl [Ultram 50 mg Tablet] 50 mg PO Q6HP PRN #30 tablet 12/26/16 History of Present Illness Admission Date/PCP: 12/22/16 05:41 History of Present Illness: VINCE ALVARADO is a 89 year old female with a past medical history of COPD recurrent urinary tract infection and anxiety who is a long-term long term resident noted by family to be excessively sleepy and poorly verbally responsive and brought to the emergency room for evaluation where she is unable to provide history however evaluation of the medication reconciliation from intermediate includes scheduled Benadryl 3 times a day, Ultram, Remeron, and Xanax. Lab workup reveals hypercapnia and hyponatremia her imaging reveals severe constipation she is ordered BiPAP and referred to the hospitalist for admission. Hospital Course Hospital Course: 89-year-old female who presented with decreased responsiveness. The patient is a history of COPD and had been receiving Benadryl scheduled along with Remeron and when necessary Xanax. The patient was admitted and started on BiPAP and she had improvement in her mental status. Patient was still slightly confused but appear to be at her baseline. The patient did have some mild hyponatremia which most likely is not contributing to her mental status changes. The patient also had hyperkalemia which had resolved. The patient was back to her baseline is doing well in all of her other medical problems were unchanged during this hospitalization. She does have a chronic indwelling Cade catheter and she is a DO NOT RESUSCITATE. She is to be continued with the Xanax and Benadryl but they are written for when necessary. Physical Exam Vital Signs: Temp Pulse Resp BP Pulse Ox 98.0 F 72 18 139/69 H 97 12/26/16 02:49 12/26/16 08:14 12/26/16 08:14 12/26/16 02:49 12/26/16 08:14 Intake & Output 12/25/16 12/26/16 12/27/16 06:59 06:59 06:59 Intake Total 632 475 Output Total 3333 016 Balance -1568 -988 Weight 65.9 kg 65.9 kg General appearance: PRESENT: no acute distress Eye exam: PRESENT: conjunctiva pink. ABSENT: scleral icterus Mouth exam: PRESENT: moist, tongue midline Neck exam: ABSENT: JVD Respiratory exam: PRESENT: clear to auscultation swapna. ABSENT: rales, rhonchi, wheezes Cardiovascular exam: PRESENT: RRR. ABSENT: diastolic murmur, rubs, systolic murmur GI/Abdominal exam: PRESENT: normal bowel sounds, soft. ABSENT: distended, guarding, mass, organolmegaly, rebound, tenderness Extremities exam: ABSENT: calf tenderness, clubbing, pedal edema Neurological exam: PRESENT: alert, awake, oriented to person, oriented to place , CN II-XII grossly intact. ABSENT: oriented to time, oriented to situation, motor sensory deficit Psychiatric exam: PRESENT: flat affect Skin exam: PRESENT: dry, intact, warm. ABSENT: cyanosis, rash Results Laboratory Results: 12/26/16 04:20 12/26/16 04:20 12/26/16 12/26/16 04:20 04:20 WBC 7.7 RBC 3.03 L Hgb 8.6 L Hct 25.9 L MCV 85 MCH 28.3 MCHC 33.1 RDW 15.9 H Plt Count 360 Seg Neutrophils % 63.9 Lymphocytes % 23.5 Monocytes % 6.9 Eosinophils % 4.7 Basophils % 1.0 Absolute Neutrophils 4.9 Absolute Lymphocytes 1.8 Absolute Monocytes 0.5 Absolute Eosinophils 0.4 Absolute Basophils 0.1 Sodium 130.4 L Potassium 4.2 Chloride 90 L Carbon Dioxide 30 Anion Gap 10 BUN 8 Creatinine 0.42 L Est GFR ( Amer) > 60 Est GFR (Non-Af Amer) > 60 Glucose 104 Calcium 9.6 Impressions: Chest X-Ray 12/21/16 22:02 IMPRESSION: NO ACUTE RADIOGRAPHIC FINDING IN THE CHEST. Head CT 12/21/16 22:31 IMPRESSION: No acute findings. Stable left thalamic lacunar infarct. Chest CT 12/22/16 02:00 IMPRESSION: 1. Worsened moderate L1 anterior compression deformity. 2. Chronic 4.1 cm and descending thoracic aortic aneurysm. 3. Chronic right hemidiaphragmatic elevation. 4. Bilateral lower lobar scar-fibrosis without suspicious interval change since June 2016. 5. A previously described suspicious right renal mass is not included in the imaging field compared with prior CT from June 2016. Transfer Plan - Disposition Transfer Plan: Patient is transferred back to [facility] where she was residing prior to this admission. - Time Spent with Patient Time spent with patient: Greater than 30 Minutes Qualifiers PATEINT BEING DISCHARGED WITH ANY OF THE FOLLOWING DIAGNOSIS?: No Plan Discharge Plan: She will follow up with her primary care doctor in 2 weeks. Time Spent: Greater than 30 Minutes
[2016-12-26] MEDS: CARBOXYMETHYLCELLULOSE SOD 0.5% 0.4 ML DROPERETTE OU PRN (11:52)
[2016-12-26] MEDS ORDERED: ALPRAZOLAM 0.5 MG TABLET PO ONE (15:45)
== END 2016-12-26 16:23 | DRG 190 ==
LOC: ER 20:47 → UNDOADMIN 12-22 04:36 → EH 12-22 04:36 → 4N 12-22 06:45
PROVIDERS: ADMIT Internal Medicine; ATTEND Internal Medicine
PROC: 5A09357 Assistance with Respiratory Ventilation, Less than 24 Consecutive Hours, Continuous Positive Airway Pressure (ICD-10-PCS; principal; 2016-12-22)
DX: J44.1 Chronic obstructive pulmonary disease with (acute) exacerbation (principal); G93.40 Encephalopathy, unspecified; E87.1 Hypo-osmolality and hyponatremia; J96.12 Chronic respiratory failure with hypercapnia; Z99.81 Dependence on supplemental oxygen; E87.5 Hyperkalemia; I10 Essential (primary) hypertension; Z66 Do not resuscitate; D64.9 Anemia, unspecified; R51 Headache; M19.90 Unspecified osteoarthritis, unspecified site; F41.9 Anxiety disorder, unspecified; K59.00 Constipation, unspecified; R91.8 Other nonspecific abnormal finding of lung field; Z88.8 Allergy status to other drugs, medicaments and biological substances; Z79.899 Other long term (current) drug therapy; Z87.891 Personal history of nicotine dependence
CPT/HCPCS: 36415; 51702; 70450; 71010; 71260; 80048; 80053; 81001; 82803; 83605; 84443; 84484; 85025; 87040; 93005; 93010; 94640; 94660; 96361; 96365; 99291; J1644; J2543; J3490; J7030; J7620

== ENCOUNTER 2017-01-23 21:27 | Inpatient (IN) | payer MEDICARE, MEDICAID ==
[~2017-01-23 21:27] MED LIST: NORMAL SALINE 1000 ML 1,000 ML IV ONE
[2017-01-23] MEDS ORDERED: ALBUTEROL SULFATE 0.083% NEB 2.5 MG/3 ML AMPUL NEB ONE (21:41)
[2017-01-23] MEDS ORDERED: IPRATROPIUM/ALBUTEROL 0.5-2.5 MG/3 ML AMPUL NEB ONE ×2 (21:43→22:01)
[2017-01-23] MEDS ORDERED: LEVOFLOXACIN 750 MG/D5W RTU 150 ML IV ONE (22:01)
[2017-01-23 22:28] LABS: APPEARANCE,URINE CLOUDY; BILIRUBIN,URINE NEGATIVE (NEGATIVE); GLUCOSE, URINE NEGATIVE (NEGATIVE); KETONES,URINE NEGATIVE (NEGATIVE); LEUKOCYTE ESTERASE,URINE LARGE (NEGATIVE); NITRITE,URINE NEGATIVE (NEGATIVE); PROTEIN,URINE 30 mg/dL (NEGATIVE); URINE SPECIFIC GRAVITY 1.013; UROBILINOGEN,URINE NEGATIVE mg/dL (<2.0)
[2017-01-23 22:30] LABS: HEMOGLOBIN 9.7 g/dL (12.0-15.5)
[2017-01-23 22:34] LABS: HEMATOCRIT 30.9 % (36.0-47.0); HGB HCT DIFFERENCE -1.8; MEAN CORPUSCULAR HEMOGLOBIN 25.6 pg (27.0-33.4); MEAN CORPUSCULAR HGB CONC 31.3 g/dL (32.0-36.0); MEAN CORPUSCULAR VOLUME 82 fl (80-97); RED BLOOD COUNT 3.77 10^6/uL (3.72-5.28); RED CELL DISTRIBUTION WIDTH 16.4 % (11.5-14.0); WHITE BLOOD COUNT 18.4 10^3/uL (4.0-10.5)
[2017-01-23 22:37] LABS: ALANINE AMINOTRANSFERASE 24 U/L (9-52); ALBUMIN 3.7 g/dL (3.5-5.0); ALKALINE PHOSPHATASE 87 U/L (38-126); ANION GAP 12 (5-19); ASPARTATE AMINO TRANSFERASE 17 U/L (14-36); BILIRUBIN,DIRECT 0.2 mg/dL (0.0-0.4); BILIRUBIN,TOTAL 0.6 mg/dL (0.2-1.3); BLOOD UREA NITROGEN 16 mg/dL (7-20); CALCIUM 9.5 mg/dL (8.4-10.2); CARBON DIOXIDE 33 mmol/L (22-30); CHLORIDE 86 mmol/L (98-107); CREATININE RESULT 0.61 mg/dL (0.52-1.25); GLUCOSE 163 mg/dL (75-110); POTASSIUM 4.7 mmol/L (3.6-5.0); TOTAL PROTEIN 6.3 g/dL (6.3-8.2)
[2017-01-23 22:38] LABS: CREATINE KINASE < 20 U/L (30-135)
[2017-01-23 22:41] LABS: VENOUS BLOOD BASE EXCESS 3.3 mmol/L; VENOUS BLOOD HCO3 30.7 mmol/L (20-32); VENOUS BLOOD PCO2 62.9 mmHg (35-63); VENOUS BLOOD PH 7.31 (7.30-7.42)
[2017-01-23 22:51] LABS: BAND NEUTROPHILS % (MANUAL) 4 % (3-5); BASOPHILS % (MANUAL) 0 % (0-2); EOSINOPHILS % (MANUAL) 1 % (0-6); LYMPHOCYTES % (MANUAL) 6 % (13-45); TOTAL CELLS COUNTED 100
[2017-01-23 22:52] LABS: ANISOCYTOSIS 1+; CREATINE KINASE MB 0.78 ng/mL (<4.55); HYPOCHROMASIA SLIGHT; OVALOCYTES SLIGHT; POIKILOCYTOSIS SLIGHT; POLYCHROMASIA SLIGHT; TROPONIN I 0.015 ng/mL
[2017-01-23] MEDS ORDERED: VANCOMYCIN HCL INJ 1000 MG VIAL IV ONE (22:55)
[2017-01-23] MEDS ORDERED: PIPERACILLIN/TAZOBACTAM 3.375 GM VIAL IV ONE (22:55)
--- NOTE | 2017-01-23 22:55 | ER Document Report ---
ED General - General Chief Complaint: Shortness Of Breath Stated Complaint: DIFFICULTY BREATHING Mode of Arrival: Medic Information source: Patient, Relative, [facility] Records, Outside Facility Records Notes: 89-year-old female DO NOT RESUSCITATE from care facility presents with complaints of difficulty breathing over the past 2 days. Patient has had a productive cough. Patient found to be tachycardic and sent in for evaluation, patient's initial O2 was noted to be 85% on 3 L nasal cannula TRAVEL OUTSIDE OF THE [place] IN LAST 30 DAYS: No - HPI Onset: Yesterday Onset/Duration: Persistent, Worse Quality of pain: No pain Severity: Moderate Pain Level: Denies Associated symptoms: Nonproductive cough, Shortness of breath Exacerbated by: Denies Relieved by: Denies Similar symptoms previously: Yes Recently seen / treated by doctor: Yes - Related Data Allergies/Adverse Reactions: codeine [Codeine] Allergy (Verified 09/06/16 22:58) Past Medical History - Social History Smoking Status: Never Smoker Cigarette use (# per day): No Chew tobacco use (# tins/day): No Smoking Education Provided: No Family History: Reviewed & Not Pertinent, Other - Past Medical History Cardiac Medical History: Reports: Hx Hypertension Denies: Hx Congestive Heart Failure, Hx DVT, Hx Heart Attack, Hx Hypercholesterolemia, Hx Pulmonary Embolism Pulmonary Medical History: 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 Denies: Hx Seizures Endocrine Medical History: Denies: Hx Diabetes Mellitus Type 1, Hx Diabetes Mellitus Type 2, Hx Hyperthyroidism, Hx Hypothyroidism Renal/ Medical History: Denies: Hx Peritoneal Dialysis GI Medical History: Reports: Hx Gastroesophageal Reflux Disease, Hx Hiatal Hernia. Denies: Hx Cirrhosis, Hx Hepatitis Musculoskeltal Medical History: Reports Hx Arthritis Skin Medical History: Denies Hx Eczema, Denies Hx Psoriasis Psychiatric Medical History: Reports: Hx Depression - No suicidal or homicidal ideation. Infectious Medical History: Denies: Hx Hepatitis Past Surgical History: Reports: Hx Orthopedic Surgery - Hip - Immunizations Hx Diphtheria, Pertussis, Tetanus Vaccination: Yes Hx Pneumococcal Vaccination: 09/25/12 Review of Systems - Review of Systems Notes: REVIEW OF SYSTEMS: CONSTITUTIONAL : Denies fever, chills, or sweats. Denies recent illness. EENT: Denies eye, ear, throat, or mouth pain or symptoms. Denies nasal or sinus congestion or discharge. Denies throat, tongue, or mouth swelling or difficulty swallowing. CARDIOVASCULAR: Denies chest pain. Denies palpitations or racing or irregular heart beat. Denies ankle edema. RESPIRATORY: Denies cough, cold, or chest congestion. Denies shortness of breath, admits to difficulty breathing GASTROINTESTINAL: Denies abdominal pain or distention. Denies nausea, vomiting , or diarrhea. Denies blood in vomitus, stools, or per rectum. Denies black, tarry stools. Denies constipation. GENITOURINARY: Denies difficulty urinating, painful urination, burning, frequency, blood in urine, or discharge. FEMALE GENITOURINARY: Denies vaginal bleeding, heavy or abnormal periods, irregular periods. Denies vaginal discharge or odor. MUSCULOSKELETAL: Denies back or neck pain or stiffness. Denies joint pain or swelling. SKIN: Denies rash, lesions or sores. HEMATOLOGIC : Denies easy bruising or bleeding. LYMPHATIC: Denies swollen, enlarged glands. NEUROLOGICAL: Denies confusion or altered mental status. Denies passing out or loss of consciousness. Denies dizziness or lightheadedness. Denies headache. Denies weakness or paralysis or loss of use of either side. Denies problems with gait or speech. Denies sensory loss, numbness, or tingling. Denies seizures. PSYCHIATRIC: Denies anxiety or stress. Denies depression, suicidal ideation, or homicidal ideation. ALL OTHER SYSTEMS REVIEWED AND NEGATIVE. Dictation was performed using [employer] voice recognition software PHYSICAL EXAMINATION: GENERAL: Well-appearing, well-nourished and in no acute distress. HEAD: Atraumatic, normocephalic. EYES: Pupils equal round and reactive to light, extraocular movements intact, conjunctiva are normal. ENT: Nares patent, oropharynx clear without exudates. Moist mucous membranes. NECK: Normal range of motion, supple without lymphadenopathy LUNGS: Coarse rhonchi all throughout HEART: Regular rate and rhythm without murmurs ABDOMEN: Soft, nontender, nondistended abdomen. No guarding, no rebound. No masses appreciated. Female : deferred Musculoskeletal: Normal range of motion, no pitting or edema. No cyanosis. NEUROLOGICAL: Cranial nerves grossly intact. Normal speech, normal gait. Normal sensory, motor exams PSYCH: Normal mood, normal affect. SKIN: Warm, Dry, normal turgor, no rashes or lesions noted. Physical Exam - Vital signs Vitals: Pulse Ox 95 01/23/17 21:43 Course - Re-evaluation Re-evalutation: 01/23/17 22:55 Patient has probable pneumonia, was started immediately on Levaquin on arrival with breathing treatments and steroids. Patient will be admitted to the hospitalist service for further care 01/23/17 22:56 - Vital Signs Vital signs: Temp Pulse Resp BP Pulse Ox 95 01/23/17 21:43 - Laboratory Result Diagrams: 01/23/17 22:04 01/23/17 22:04 Laboratory results interpreted by me: 01/23/17 01/23/17 01/23/17 22:04 22:04 22:04 WBC 18.4 H Hgb 9.7 L Hct 30.9 L MCH 25.6 L MCHC 31.3 L RDW 16.4 H Plt Count 466 H Seg Neuts % (Manual) 82 H Lymphocytes % (Manual) 6 L Abs Neuts (Manual) 15.8 H Sodium 131.0 L Chloride 86 L Carbon Dioxide 33 H Glucose 163 H Creatine Kinase < 20 L NT-Pro-B Natriuret Pep 986 H Urine Protein Urine Blood Ur Leukocyte Esterase 01/23/17 22:04 WBC Hgb Hct MCH MCHC RDW Plt Count Seg Neuts % (Manual) Lymphocytes % (Manual) Abs Neuts (Manual) Sodium Chloride Carbon Dioxide Glucose Creatine Kinase NT-Pro-B Natriuret Pep Urine Protein 30 H Urine Blood SMALL H Ur Leukocyte Esterase LARGE H Critical Care Note - Critical Care Note Total time excluding time spent on procedures (mins): 34 Comments: 34 minutes of critical care time spent in direct contact evaluating and reevaluating the patient, treating symptoms, reviewing labs and studies and speaking with family and consultants excluding any procedures Discharge - Discharge Clinical Impression: Hospital-acquired pneumonia, UTI (urinary tract infection) due to Enterococcus , Do not resuscitate Sepsis Qualifiers: Sepsis type: sepsis due to unspecified organism Qualified Code(s): A41.9 - Sepsis, unspecified organism Condition: Fair Disposition: ADMITTED INPATIENT Admitting Provider: Hospitalist Unit Admitted: Telemetry
[2017-01-23] MEDS ORDERED: NORMAL SALINE 1000 ML 1,000 ML IV ONE (23:21)
[2017-01-23] MEDS ORDERED: ALBUTEROL SULFATE 0.083% NEB 2.5 MG/3 ML AMPUL NEB PRN (23:31)
[2017-01-23] MEDS ORDERED: ACETAMINOPHEN 325 MG TABLET PO PRN (23:31)
[2017-01-23] MEDS ORDERED: ALPRAZOLAM 0.5 MG TABLET PO PRN (23:31)
[2017-01-23] MEDS ORDERED: GUAIFENESIN SYRP 200 MG/10 ML UDC PO PRN (23:32)
[2017-01-23] MEDS ORDERED: VANCOMYCIN HCL 1,000 MG in DEXTROSE 5%-WATER 250 ML IV NR (23:45)
[2017-01-24] MEDS ORDERED: METOPROLOL TARTRATE PF/INJ 5 MG/5 ML SDV IV PRN (00:23)
--- NOTE | 2017-01-24 00:51 | PDOC H&P ---
History of Present Illness Admission Date/PCP: 01/23/17 23:32 RUBEN FU MD Patient complains of: Shortness of breath cough History of Present Illness: VINCE ALVARADO is a 89 year old female with a past medical history of COPD, chronic indwelling Cade, anxiety and lung mass. She had been her usual state of health until approximately a week ago noted have exceptional shortness of breath and cough initially unproductive becoming productive than associated with a subjective fever and diaphoresis prompting him to seek evaluation emergency room where she's found to have sepsis with bilateral pneumonia and a moderate right-sided pleural effusion with leukocytosis and tachycardia. Her son is at bedside that states she frequently coughs while eating but has had no infectious contacts. CODE STATUS is verified DO NOT RESUSCITATE Past Medical History Cardiac Medical History: Reports: Hypertension Denies: Congestive Heart Failure, DVT, Myocardial Infarction, Hyperlipidema, Pulmonary Embolism Pulmonary Medical History: Reports: Chronic Obstructive Pulmonary Disease (COPD ) - Oxygen dependent, Pneumonia Neurological Medical History: Reports: Migraine - Chronic intermittent headaches Denies: Seizures Endocrine Medical History: Denies: Diabetes Mellitus Type 1, Diabetes Mellitus Type 2, Hyperthyroidism, Hypothyroidism GI Medical History: Reports: Gastroesophageal Reflux Disease, Hiatal Hernia Denies: Cirrhosis, Hepatitis Musculoskeltal Medical History: Reports: Arthritis Skin Medical History: Denies: Eczema, Psoriasis Psychiatric Medical History: Reports: Depression - No suicidal or homicidal ideation. Hematology: Reports: Anemia Past Surgical History Past Surgical History: Reports: Orthopedic Surgery - Hip Social History Information Source: Patient Lives with: [facility] Smoking Status: Never Smoker Frequency of Alcohol Use: None Hx Recreational Drug Use: No Drugs: None Hx Prescription Drug Abuse: No - Advance Directive Resuscitation Status: Do Not Resuscitate Family History Family History: COPD, Hypertension, Other Parental Family History Reviewed: Yes Children Family History Reviewed: Yes Sibling(s) Family History Reviewed.: Yes Medication/Allergy Home Medications: Acetaminophen [Tylenol 325 mg Tablet] 650 mg PO Q4HP PRN 12/22/16 Albuterol Sulfate [Ventolin 0.083% Neb 2.5 mg/3 mL Ampul] 3 ml NEB RTQ4HP PRN Aspirin [Aspirin 81 mg Chewable Tablet] 81 mg PO DAILY 12/22/16 Budesonide/Formoterol Fumarate [Symbicort HFA 80-4.5 mcg Inhaler 6.9 gm] 2 puff IH BID 12/22/16 Diphenhydramine HCl [Benadryl 25 mg Capsule] 25 mg PO Q8HP PRN 12/22/16 Docusate Sodium [Colace 100 mg Capsule] 100 mg PO DAILY 12/22/16 Lactulose [Constulose] 30 ml PO QHS 12/22/16 Metoprolol Tartrate [Lopressor 25 mg Tablet] 25 mg PO Q12 12/22/16 Mirtazapine [Remeron 15 mg Tablet] 7.5 mg PO QHS 12/22/16 Multivits-Min/Iron/FA/Lutein [Centrum Silver Women Tablet] 1 tab PO DAILY Omeprazole 20 mg PO BID 12/22/16 Prednisone [Deltasone 5 mg Tablet] 5 mg PO DAILY 12/22/16 Tiotropium [place] [Spiriva Handihaler 5 Cap/Kit (18 Mcg/Cap)] 1 puff IH DAILY 12/22/16 Alprazolam [Xanax 0.5 mg Tablet] 0.5 mg PO DAILYP PRN #20 tablet 12/26/16 Tramadol HCl [Ultram 50 mg Tablet] 50 mg PO Q6HP PRN #30 tablet 12/26/16 Allergies/Adverse Reactions: codeine [Codeine] Allergy (Verified 09/06/16 22:58) Review of Systems Constitutional: PRESENT: anorexia, chills, fatigue, fever(s), night sweats, weakness Eyes: PRESENT: as per HPI Ears: ABSENT: hearing changes Cardiovascular: PRESENT: chest pain - Anterior chest wall sharp with inhalation. ABSENT: dyspnea on exertion, edema, orthropnea, palpitations Respiratory: PRESENT: cough, dyspnea, sputum Gastrointestinal: PRESENT: bloating, constipation, heartburn, nausea. ABSENT: coffee ground emesis, diarrhea, dysphagia, hematemesis, hematochezia Genitourinary: ABSENT: dysuria, hematuria Musculoskeletal: ABSENT: joint swelling Integumentary: ABSENT: rash, wounds Neurological: ABSENT: abnormal gait, abnormal speech, confusion, dizziness, focal weakness, syncope Psychiatric: ABSENT: anxiety, depression, homidical ideation, suicidal ideation Endocrine: ABSENT: cold intolerance, heat intolerance, polydipsia, polyuria Hematologic/Lymphatic: ABSENT: easy bleeding, easy bruising Physical Exam Vital Signs: Temp Pulse Resp BP Pulse Ox 99.8 F 141 H 24 H 144/76 H 95 01/23/17 22:00 01/23/17 22:00 01/23/17 22:00 01/23/17 22:00 01/23/17 22:00 General appearance: PRESENT: cooperative, disheveled, severe distress, other - Toxic appearing Head exam: PRESENT: atraumatic, normocephalic Eye exam: PRESENT: conjunctiva pink, EOMI, PERRLA. ABSENT: scleral icterus Ear exam: PRESENT: normal external ear exam Mouth exam: PRESENT: dry mucosa, tongue midline Neck exam: ABSENT: carotid bruit, JVD, lymphadenopathy, thyromegaly Respiratory exam: PRESENT: accessory muscle use, crackles, decreased breath sounds, prolonged expiratory phas, rales, retraction, rhonchi, symmetrical, tachypnea. ABSENT: wheezes Cardiovascular exam: PRESENT: RRR. ABSENT: diastolic murmur, rubs, systolic murmur Pulses: PRESENT: normal dorsalis pedis pul Vascular exam: PRESENT: normal capillary refill GI/Abdominal exam: PRESENT: normal bowel sounds, soft. ABSENT: distended, guarding, mass, organolmegaly, rebound, tenderness Rectal exam: PRESENT: deferred Extremities exam: PRESENT: full ROM. ABSENT: calf tenderness, clubbing, pedal edema Neurological exam: PRESENT: alert, awake, oriented to person, oriented to place , oriented to time, oriented to situation, CN II-XII grossly intact. ABSENT: motor sensory deficit Psychiatric exam: PRESENT: appropriate affect, normal mood. ABSENT: homicidal ideation, suicidal ideation Skin exam: PRESENT: dry, intact, warm. ABSENT: cyanosis, rash Results Impressions: Chest X-Ray 01/23/17 21:43 IMPRESSION: Increased right basilar airspace disease-effusion. Assessment & Plan - Diagnosis (1) Hospital-acquired pneumonia Is this a current diagnosis for this admission?: YesPlan: New and acute problem. In the emergency room she is started on albuterol, Atrovent, Zosyn, Levaquin and vancomycin. I will add prednisone, flutter valve , incentive spirometry, chest PT. Following up CBC culture and repeat chest x- ray (2) Sepsis Qualifiers: Sepsis type: sepsis due to unspecified organism Qualified Code(s): A41.9 - Sepsis, unspecified organism Is this a current diagnosis for this admission?: YesPlan: Aggressive measures to correct underlying pneumonia as above, IV fluid challenge reevaluation of fluid status and consideration of pressors (3) UTI (urinary tract infection) due to Enterococcus Is this a current diagnosis for this admission?: YesPlan: Likely contaminated with colonization given chronic indwelling Cade culture pending (4) COPD (chronic obstructive pulmonary disease) Qualifiers: COPD type: unspecified COPD Qualified Code(s): J44.9 - Chronic obstructive pulmonary disease, unspecified Is this a current diagnosis for this admission?: YesPlan: Aggressive pulmonary toilet, flutter valve, supplemental oxygen please see #1 - Time Time Spent: 50 to 70 Minutes - Inpatient Certification Medical Necessity: Need Close Monitoring Due to Risk of Patient Decompensation
[2017-01-24] MEDS ORDERED: PIPERACILLIN/TAZOBACTAM 4.5 GM VIAL IV PRN ×2 (02:00→03:00)
[2017-01-24] MEDS ORDERED: PIPERACILLIN SODIUM/TAZOBACTAM 4.5 GM in NORMAL SALINE 100 ML IV SCH ×3 (02:00→09:00)
[2017-01-24] MEDS: IPRATROPIUM/ALBUTEROL 0.5-2.5 MG/3 ML AMPUL NEB SCH ×4 (02:26→20:29)
[2017-01-24] MEDS ORDERED: PIPERACILLIN/TAZOBACTAM 4.5 GM VIAL IV ONE (03:24)
[2017-01-24] MEDS: HEPARIN SOD (PORCINE) 5,000 UNIT/ML 1 ML SYRINGE SUBCUT SCH ×3 (05:49→21:40)
[2017-01-24 06:06] LABS: HEMATOCRIT 26.1 % (36.0-47.0); HEMOGLOBIN 8.2 g/dL (12.0-15.5); HGB HCT DIFFERENCE -1.5; MEAN CORPUSCULAR HEMOGLOBIN 25.5 pg (27.0-33.4); MEAN CORPUSCULAR HGB CONC 31.3 g/dL (32.0-36.0); MEAN CORPUSCULAR VOLUME 82 fl (80-97); RED CELL DISTRIBUTION WIDTH 16.2 % (11.5-14.0); WHITE BLOOD COUNT 13.8 10^3/uL (4.0-10.5)
[2017-01-24 06:21] LABS: ANION GAP 12 (5-19); BLOOD UREA NITROGEN 18 mg/dL (7-20); CALCIUM 8.7 mg/dL (8.4-10.2); CARBON DIOXIDE 31 mmol/L (22-30); CHLORIDE 88 mmol/L (98-107); CREATININE RESULT 0.56 mg/dL (0.52-1.25); GLUCOSE 280 mg/dL (75-110); POTASSIUM 4.2 mmol/L (3.6-5.0); SODIUM 131.1 mmol/L (137-145)
[2017-01-24 06:25] LABS: BAND NEUTROPHILS % (MANUAL) 3 % (3-5); BASOPHILS % (MANUAL) 0 % (0-2); EOSINOPHILS % (MANUAL) 0 % (0-6); LYMPHOCYTES % (MANUAL) 1 % (13-45); TOTAL CELLS COUNTED 100
[2017-01-24 06:27] LABS: ANISOCYTOSIS 1+; OVALOCYTES SLIGHT; POIKILOCYTOSIS SLIGHT; TOXIC GRANULATION SLIGHT
--- NOTE | 2017-01-24 07:57 | EKG REPORT ---
SEVERITY:- ABNORMAL ECG - SINUS TACHYCARDIA CONSIDER LEFT VENTRICULAR HYPERTROPHY BORDERLINE T ABNORMALITIES, INFERIOR LEADS : Confirmed by: Ronald Sutton MD 24-Jan-2017 07:57:05
[2017-01-24] MEDS: GUAIFENESIN 600 MG TABLET.SA PO SCH ×2 (09:56→21:40)
[2017-01-24] MEDS: LANSOPRAZOLE 15 MG TAB.RAP.DR PO SCH ×2 (09:57→17:51)
[2017-01-24] MEDS: TIOTROPIUM BROMIDE DPI 5 CAP/KIT (18 MCG/CAP) IH SCH (09:59)
[2017-01-24] MEDS ORDERED: ASPIRIN 81 MG TABLET, CHEWABLE PO SCH (10:00)
[2017-01-24] MEDS ORDERED: BUDESONIDE/FORMOTEROL 80-4.5 MCG 60 PUFF/6.9 GM MDI IH SCH (10:00)
[2017-01-24] MEDS ORDERED: (PENDING PHARMACY ID) (Multivits-Min/Iron/Fa/Lutein [Centrum Silver Women Tablet] 1 TAB) PO SCH (10:00)
[2017-01-24] MEDS ORDERED: METOPROLOL TARTRATE 25 MG TABLET PO SCH (10:00)
[2017-01-24] MEDS ORDERED: PREDNISONE 5 MG TABLET PO SCH (10:00)
[2017-01-24] MEDS ORDERED: DOCUSATE SODIUM 100 MG CAPSULE PO SCH (10:00)
[2017-01-24] MEDS: PIPERACILLIN SODIUM/TAZOBACTAM 2.25 GM in NORMAL SALINE 50 ML IV SCH ×3 (11:52→23:46)
[2017-01-24] MEDS ORDERED: TRAMADOL HCL 50 MG TABLET PO PRN (13:23)
[2017-01-24] MEDS ORDERED: (PENDING PHARMACY ID) (Lactulose [Constulose 10 Gm/15 Ml Oral Solution] 30 ML) PO PRN (13:23)
--- NOTE | 2017-01-24 13:55 | PDOC PROGRESS REPORT ---
Subjective Progress Note for:: 01/24/17 Subjective:: The patient is currently lying in bed. The patient was only minimally responsive upon rounds. Patient is able to deny any pain. The patient's family is present at bedside and active in patient's care. The patient is no longer requiring BiPAP and is been able to be transferred over to a nasal cannula. The patient has not had much of a cough and some been able to produce any sputum. This makes the patient's fourth inpatient stay in the last 6 months. Each of the patient's admissions was noted for pneumonia. Physical Exam Vital Signs: Temp Pulse Resp BP Pulse Ox 97.6 F 96 29 H 112/51 L 92 01/24/17 07:27 01/24/17 07:54 01/24/17 07:54 01/24/17 07:27 01/24/17 07:54 Intake & Output 01/22/17 01/23/17 01/24/17 23:59 23:59 23:59 Intake Total 650 Output Total 500 Balance 150 Weight 56 kg General appearance: PRESENT: disheveled Exam: Frail, chronically ill-appearing Head exam: PRESENT: atraumatic, normocephalic Eye exam: PRESENT: conjunctiva pale, EOMI, periorbital swelling, PERRLA. ABSENT : scleral icterus Ear exam: PRESENT: normal external ear exam Mouth exam: PRESENT: moist, tongue midline Neck exam: ABSENT: carotid bruit, JVD, lymphadenopathy, thyromegaly, tracheal deviation, tracheostomy Respiratory exam: PRESENT: decreased breath sounds, symmetrical, unlabored. ABSENT: rales, rhonchi, tachypnea, wheezes Cardiovascular exam: PRESENT: RRR. ABSENT: diastolic murmur, rubs, systolic murmur Pulses: PRESENT: normal dorsalis pedis pul Vascular exam: PRESENT: normal capillary refill GI/Abdominal exam: PRESENT: normal bowel sounds, soft. ABSENT: distended, guarding, mass, organolmegaly, rebound, tenderness Rectal exam: PRESENT: deferred Extremities exam: PRESENT: full ROM. ABSENT: calf tenderness, clubbing, pedal edema Neurological exam: PRESENT: awake - Delayed, oriented to person, other - Unable to fully assess as the patient is only minimally responsive. ABSENT: motor sensory deficit Psychiatric exam: PRESENT: flat affect Skin exam: PRESENT: dry, intact, mottled, pallor, warm. ABSENT: cyanosis, rash Results Laboratory Results: 01/24/17 05:45 01/24/17 05:45 01/24/17 01/24/17 05:45 05:45 WBC 13.8 H RBC 3.20 L Hgb 8.2 L Hct 26.1 L MCV 82 MCH 25.5 L MCHC 31.3 L RDW 16.2 H Plt Count 411 Seg Neutrophils % Not Reportable Lymphocytes % Not Reportable Monocytes % Not Reportable Eosinophils % Not Reportable Basophils % Not Reportable Absolute Neutrophils Not Reportable Absolute Lymphocytes Not Reportable Absolute Monocytes Not Reportable Absolute Eosinophils Not Reportable Absolute Basophils Not Reportable Sodium 131.1 L Potassium 4.2 Chloride 88 L Carbon Dioxide 31 H Anion Gap 12 BUN 18 Creatinine 0.56 Est GFR ( Amer) > 60 Est GFR (Non-Af Amer) > 60 Glucose 280 H Calcium 8.7 Impressions: Chest X-Ray 01/23/17 21:43 IMPRESSION: Increased right basilar airspace disease-effusion. Assessment & Plan - Diagnosis (1) COPD exacerbation Is this a current diagnosis for this admission?: YesPlan: Secondary to the patient's pneumonia. Will continue nebulizers and follow (2) Right lower lobe pneumonia Qualifiers: Pneumonia type: due to unspecified organism Qualified Code(s): J18.1 - Lobar pneumonia, unspecified organism Is this a current diagnosis for this admission?: YesPlan: It appears the patient has had recurrent aspiration pneumonia. Will continue Zosyn. Will have speech reevaluate. (3) Acute on chronic respiratory failure with hypoxia and hypercapnia Is this a current diagnosis for this admission?: YesPlan: Will continue supplemental O2. Appears the patient's O2 sat did drop into the mid 80s. No longer requiring BiPAP at this time but will monitor closely. Selected Entries 01/23/17 01/24/17 22:00 05:01 Respiratory 33 H 39 H Rate (4) Chronic indwelling Cade catheter Is this a current diagnosis for this admission?: YesPlan: It appears the patient does have a UTI. Will culture. NT current antibiotic coverage. It appears that the patient's Cade was due to be changed on the will rotate this at this time and follow. (5) Sepsis Qualifiers: Sepsis type: sepsis due to unspecified organism Qualified Code(s): A41.9 - Sepsis, unspecified organism Is this a current diagnosis for this admission?: YesPlan: Secondary to the above as well as UTI. Does not appear the patient has had a history of MRSA therefore will DC vancomycin and continue current antibiotic coverage for now and await cultures and sensitivities. (6) Compression fracture Is this a current diagnosis for this admission?: YesPlan: Continue supportive measures (7) Dysphagia, unspecified Qualifiers: Dysphagia type: unspecified Qualified Code(s): R13.10 - Dysphagia, unspecified Is this a current diagnosis for this admission?: YesPlan: Consult speech therapy for evaluation. (8) Hypertension Qualifiers: Hypertension type: essential hypertension Qualified Code(s): I10 - Essential (primary) hypertension Is this a current diagnosis for this admission?: YesPlan: Will continue home medications. 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 (10) Anemia of chronic disease Is this a current diagnosis for this admission?: YesPlan: Hemoglobin did drift down with fluid hydration. Will repeat in the a.m. and follow. 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 (13) Lung mass Is this a current diagnosis for this admission?: No (14) Mass of right kidney Is this a current diagnosis for this admission?: No - Time Time Spent with patient: 35 or more minutes Medications reviewed and adjusted accordingly: Yes Anticipated discharge: SNF Disposition: The patient is a DO NOT RESUSCITATE DO NOT INTUBATE. Pending patient's symptomatology and diagnostic findings will reevaluate as needed.
[2017-01-24] MEDS ORDERED: LACTULOSE SYRUP 20 GM/30 ML UDCUP PO PRN (14:07)
[2017-01-24] MEDS: ACETAMINOPHEN 325 MG TABLET PO PRN (18:20)
[2017-01-24] MEDS: METOPROLOL TARTRATE 25 MG TABLET PO SCH (21:40)
[2017-01-24] MEDS: ALPRAZOLAM 0.5 MG TABLET PO PRN (21:40)
[2017-01-24] MEDS: MIRTAZAPINE 15 MG TABLET PO SCH (21:40)
[2017-01-24] MEDS: LACTULOSE SYRUP 20 GM/30 ML UDCUP PO SCH (21:41)
[2017-01-24] MEDS: BUDESONIDE/FORMOTEROL 80-4.5 MCG 60 PUFF/6.9 GM MDI IH SCH (21:47)
[2017-01-24] MEDS ORDERED: LEVOFLOXACIN 750 MG/D5W RTU 750 MG/150 ML RTUPB IV SCH (22:00)
[2017-01-24] MEDS ORDERED: VANCOMYCIN HCL 1,000 MG in DEXTROSE 5%-WATER 250 ML IV SCH (22:00)
[2017-01-24] MEDS ORDERED: MIRTAZAPINE 15 MG TABLET PO SCH (22:00)
[2017-01-25] MEDS: IPRATROPIUM/ALBUTEROL 0.5-2.5 MG/3 ML AMPUL NEB SCH ×4 (02:35→20:12)
[2017-01-25] MEDS: PIPERACILLIN SODIUM/TAZOBACTAM 2.25 GM in NORMAL SALINE 50 ML IV SCH ×3 (05:26→17:13)
[2017-01-25] MEDS: HEPARIN SOD (PORCINE) 5,000 UNIT/ML 1 ML SYRINGE SUBCUT SCH ×3 (05:26→21:19)
[2017-01-25 06:57] LABS: HEMATOCRIT 24.5 % (36.0-47.0); HGB HCT DIFFERENCE -0.8; MEAN CORPUSCULAR HEMOGLOBIN 26.2 pg (27.0-33.4); MEAN CORPUSCULAR HGB CONC 32.2 g/dL (32.0-36.0); MEAN CORPUSCULAR VOLUME 81 fl (80-97); RED BLOOD COUNT 3.01 10^6/uL (3.72-5.28); RED CELL DISTRIBUTION WIDTH 16.1 % (11.5-14.0); WHITE BLOOD COUNT 10.1 10^3/uL (4.0-10.5)
[2017-01-25 07:07] LABS: ANION GAP 10 (5-19); BLOOD UREA NITROGEN 16 mg/dL (7-20); CARBON DIOXIDE 35 mmol/L (22-30); CHLORIDE 92 mmol/L (98-107); CREATININE RESULT 0.59 mg/dL (0.52-1.25); GLUCOSE 116 mg/dL (75-110); POTASSIUM 3.1 mmol/L (3.6-5.0); SODIUM 136.5 mmol/L (137-145)
[2017-01-25 07:23] LABS: HEMOGLOBIN 7.9 g/dL (12.0-15.5)
[2017-01-25] MEDS ORDERED: POTASSI CL 20 MEQ/50 ML RIDER 50 ML IV SCH (08:53)
[2017-01-25] MEDS: METOPROLOL TARTRATE 25 MG TABLET PO SCH ×2 (09:44→21:20)
[2017-01-25] MEDS: GUAIFENESIN 600 MG TABLET.SA PO SCH ×2 (09:45→21:19)
[2017-01-25] MEDS: DOCUSATE SODIUM 100 MG CAPSULE PO SCH (09:45)
[2017-01-25] MEDS: LANSOPRAZOLE 15 MG TAB.RAP.DR PO SCH ×2 (09:45→17:13)
[2017-01-25] MEDS: ASPIRIN 81 MG TABLET, CHEWABLE PO SCH (09:45)
[2017-01-25] MEDS: PREDNISONE 5 MG TABLET PO SCH (09:45)
[2017-01-25] MEDS: MULTIVITAMIN TABLET PO SCH (09:45)
[2017-01-25] MEDS: BUDESONIDE/FORMOTEROL 80-4.5 MCG 60 PUFF/6.9 GM MDI IH SCH ×2 (09:46→21:19)
[2017-01-25] MEDS: TIOTROPIUM BROMIDE DPI 5 CAP/KIT (18 MCG/CAP) IH SCH (09:46)
[2017-01-25] MEDS ORDERED: TIOTROPIUM BROMIDE DPI 5 CAP/KIT (18 MCG/CAP) IH SCH (10:00)
[2017-01-25] MEDS ORDERED: (PENDING PHARMACY ID) (Multivits-Min/Iron/Fa/Lutein [Centrum Silver Women Tablet] 1 TAB) PO SCH (10:00)
[2017-01-25] MEDS: ACETAMINOPHEN 325 MG TABLET PO PRN ×3 (10:01→21:27)
--- NOTE | 2017-01-25 10:25 | PDOC PROGRESS REPORT ---
Subjective Progress Note for:: 01/25/17 Subjective:: The patient is currently lying in bed. The patient is much more responsive than she was yesterday. There is been no reported episodes of vomiting or diarrhea. The patient currently denies any pain. Discussed the case with speech therapy and appears the patient had symptoms of aspiration and is to have a modified done today. This makes the patient's fourth inpatient stay in the last 6 months. Each of the patient's admissions was noted for pneumonia. Physical Exam Vital Signs: Temp Pulse Resp BP Pulse Ox 97.4 F 88 20 147/55 H 94 01/25/17 07:44 01/25/17 08:08 01/25/17 08:08 01/25/17 07:44 01/25/17 08:08 Intake & Output 01/23/17 01/24/17 01/25/17 23:59 23:59 23:59 Intake Total 1947 410 Output Total 1075 700 Balance 872 -290 Weight 56 kg 55.9 kg General appearance: PRESENT: no acute distress, cooperative Exam: Frail, chronically ill-appearing Head exam: PRESENT: atraumatic, normocephalic Eye exam: PRESENT: conjunctiva pale, EOMI, PERRLA. ABSENT: scleral icterus Ear exam: PRESENT: normal external ear exam Mouth exam: PRESENT: moist, tongue midline Neck exam: ABSENT: carotid bruit, JVD, lymphadenopathy, thyromegaly, tracheal deviation, tracheostomy Respiratory exam: PRESENT: decreased breath sounds, rhonchi, symmetrical, unlabored. ABSENT: rales, tachypnea, wheezes Cardiovascular exam: PRESENT: RRR. ABSENT: diastolic murmur, rubs, systolic murmur Pulses: PRESENT: +1 pedal pulses bilateral Vascular exam: PRESENT: pallor GI/Abdominal exam: PRESENT: normal bowel sounds, soft. ABSENT: distended, guarding, mass, organolmegaly, rebound, tenderness Rectal exam: PRESENT: deferred Extremities exam: PRESENT: full ROM. ABSENT: calf tenderness, clubbing, pedal edema Neurological exam: PRESENT: alert - Delayed, awake, oriented to person. ABSENT : motor sensory deficit Psychiatric exam: PRESENT: appropriate affect, normal mood Skin exam: PRESENT: dry, intact, warm. ABSENT: cyanosis, rash Results Laboratory Results: 01/25/17 05:53 01/25/17 05:53 01/25/17 01/25/17 05:53 05:53 WBC 10.1 RBC 3.01 L Hgb 7.9 L Hct 24.5 L MCV 81 MCH 26.2 L MCHC 32.2 RDW 16.1 H Plt Count 405 Sodium 136.5 L Potassium 3.1 L Chloride 92 L Carbon Dioxide 35 H Anion Gap 10 BUN 16 Creatinine 0.59 Est GFR ( Amer) > 60 Est GFR (Non-Af Amer) > 60 Glucose 116 H Calcium 9.0 Impressions: Chest X-Ray 01/23/17 21:43 IMPRESSION: Increased right basilar airspace disease-effusion. Assessment & Plan - Diagnosis (1) COPD exacerbation Is this a current diagnosis for this admission?: YesPlan: Secondary to the patient's pneumonia. Will continue nebulizers and follow (2) Right lower lobe pneumonia Qualifiers: Pneumonia type: due to unspecified organism Qualified Code(s): J18.1 - Lobar pneumonia, unspecified organism Is this a current diagnosis for this admission?: YesPlan: It appears the patient has had recurrent aspiration pneumonia. Will continue Zosyn. Waiting speech input (3) Acute on chronic respiratory failure with hypoxia and hypercapnia Is this a current diagnosis for this admission?: YesPlan: Will continue supplemental O2. Appears the patient's O2 sat did drop into the mid 80s. No longer requiring BiPAP at this time but will monitor closely. 01/23/17 01/24/17 22:00 05:01 Respiratory 33 H 39 H Rate (4) Chronic indwelling Cade catheter Is this a current diagnosis for this admission?: YesPlan: It appears the patient does have a UTI. Awaiting culture. Continue current antibiotic coverage. It appears that the patient's Cade was due to be changed on the and therefore was rotate this at this time and follow. (5) Sepsis Qualifiers: Sepsis type: sepsis due to unspecified organism Qualified Code(s): A41.9 - Sepsis, unspecified organism Is this a current diagnosis for this admission?: YesPlan: Secondary to the above as well as UTI. Does not appear the patient has had a history of MRSA therefore DC vancomycin and continue current antibiotic coverage for now and await cultures and sensitivities. (6) Compression fracture Is this a current diagnosis for this admission?: YesPlan: Continue supportive measures (7) Dysphagia, unspecified Qualifiers: Dysphagia type: unspecified Qualified Code(s): R13.10 - Dysphagia, unspecified Is this a current diagnosis for this admission?: YesPlan: Consult speech therapy for evaluation. (8) Hypertension Qualifiers: Hypertension type: essential hypertension Qualified Code(s): I10 - Essential (primary) hypertension Is this a current diagnosis for this admission?: YesPlan: Will continue home medications. 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 (10) Anemia of chronic disease Is this a current diagnosis for this admission?: YesPlan: Hemoglobin did drift down with fluid hydration. Will repeat in the a.m. and follow. 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 (13) Lung mass Is this a current diagnosis for this admission?: No (14) Mass of right kidney Is this a current diagnosis for this admission?: No - Time Time Spent with patient: 25-34 minutes Medications reviewed and adjusted accordingly: Yes Anticipated discharge: SNF Within: within 24 hours, within 48 hours Disposition: The patient is a DO NOT RESUSCITATE DO NOT INTUBATE. Pending patient's symptomatology and diagnostic findings will reevaluate as needed.
[2017-01-25] MEDS ORDERED: POTASSIUM CHLORIDE 20 MEQ/50 ML RTU IV ONE (12:30)
--- NOTE | 2017-01-25 13:33 | ST Inp Modified Barium Swallow ---
Medical Diagnosis - Medical Diagnoses Medical Diagnosis Description & ICD-10 Code(s): pneumonia - ICD-10 Tx Diagnosis Coding (1) Acute on chronic respiratory failure with hypoxia and hypercapnia ICD-10 Code(s): J96.21 - ACUTE AND CHRONIC RESPIRATORY FAILURE WITH HYPOXIA J96.22 - ACUTE AND CHRONIC RESPIRATORY FAILURE WITH HYPERCAPNIA (2) Anemia of chronic disease ICD-10 Code(s): D63.8 - ANEMIA IN OTHER CHRONIC DISEASES CLASSIFIED ELSEWHERE (3) COPD exacerbation ICD-10 Code(s): J44.1 - CHRONIC OBSTRUCTIVE PULMONARY DISEASE W (ACUTE) EXACERBATION (4) Sepsis ICD-10 Code(s): A41.9 - SEPSIS, UNSPECIFIED ORGANISM (5) Chronic indwelling Schwartz catheter ICD-10 Code(s): Z92.89 - PERSONAL HISTORY OF OTHER MEDICAL TREATMENT (6) Compression fracture ICD-10 Code(s): T14.8 - OTHER INJURY OF UNSPECIFIED BODY REGION (7) Dysphagia, unspecified ICD-10 Code(s): R13.10 - DYSPHAGIA, UNSPECIFIED (8) Hypertension ICD-10 Code(s): I10 - ESSENTIAL (PRIMARY) HYPERTENSION (9) Right lower lobe pneumonia ICD-10 Code(s): J18.1 - LOBAR PNEUMONIA, UNSPECIFIED ORGANISM (11) Ulcer of left heel ICD-10 Code(s): L97.429 - NON-PRS CHRONIC ULCER OF LEFT HEEL AND MIDFOOT W [facility] Inpatient [facility] [place] - General Date: 01/25/17 Date of Onset: 01/24/17 - History History Obtained From: Other - EMR -: Medical - reviewed physicians' notes. Admitted 01/24/17 due to shortness of breath & cough. Diagnoses include: COPD exacerbation, right lower lobe pneumonia , acute on chronic respiratory failure with hypoxia and hypercapnia, chronic indwelling schwartz, sepsis secondary to schwartz and UTI, compression fracture, dysphagia, hypertension, syndrome of inappropriate ADH production, anemia of chronic disease, ulcer of left heel, DNR. Fourth inpatient stay in last 6 months - each admission noted for pneumonia. Son reported to note coughing while patient eats. MBSS performed in 2014 with pharyngeal function WNL and possible esophageal deficits - however patient's status has changed since [address] evaluated at [facility] this morning. Patient with noted coughing on 3 ounce swallow test; reported to eat only purees due to fear of choking. Medications: Medications Reviewed Allergies: Refer to medical record - Subjective Current Nutritional Means: PO - thin & puree Current Symptoms: Pneumonia Pain: no signs/symptoms of pain - patient reports "fair" - Objective Assessment: Upright, Left Lateral - Food Trials Food Trials Used: Thin liquids, Pureed, Soft solids The Patient: Required Assist - Assessment Labial Function: Within Functional Limits Lingual Function: Within Functional Limits Mandibular Function: Within Functional Limits Dentition: Partial - Pharyngeal Stage Initiation of Pharyngeal Stage: Normal Decreased Laryngeal Elevation: No Reduced Velo-Pharyngeal Closure: no Reduced Pressure Generation: No Reduced Tongue Base Retraction: No Pre-Swallowing Pooling in Valleculae: None Pre-Swallowing Pooling in Pyriforms: None Reduced Thyro-Hyiod Approximation: No Reduced Epiglottic Excursion: No Reduced Pharyngeal Peristalsis: No Post Swallow Residuals in Valleculae: None Post Swallow Residuals in Pyriforms: None Post Swallow Residuals: no residuals - Esophageal Stage Cricophageal Function: Impaired - retrograde motion of bolus observed - Impression/Summary Laryngeal Penetration: No Tracheal Aspiration: no Patient Presents With: Normal swallow at eval - for oral, jyoti-pharyngeal, and pharyngeal stages. Possible esophgeal stage deficits. - Recommendations Solid Diet Recommendations: Mechanical Soft Liquid Diet Recommendations: Thin Strict Aspitarion Precautions: Yes Dysphagia Therapy with ENGINEERING SPECIALIST: No Recommended Techniques: Fully Upright During Meal, Alternate Bites/Sips Supervision: Distant Other Recommendations: No aspiration or penentration observed on any consistency - including soft solids or ssequential straw sips of thin liquid. Retrograde motion of bolus observed after swallow - possible esophageal stage deficits or reflux. ST spoke with JAVED Kumar regarding results. Recommend diet up to mechanical soft with use of alternating bites and sips. - Time Total Time: 10 Total Timed Minutes: 0
[2017-01-25] MEDS: LACTULOSE SYRUP 20 GM/30 ML UDCUP PO SCH (21:19)
[2017-01-25] MEDS: MIRTAZAPINE 15 MG TABLET PO SCH (21:19)
[2017-01-25] MEDS: ALPRAZOLAM 0.5 MG TABLET PO PRN (21:20)
[2017-01-25] MEDS ORDERED: LEVOFLOXACIN 750 MG/D5W RTU 750 MG/150 ML RTUPB IV SCH (22:00)
[2017-01-26] MEDS: PIPERACILLIN SODIUM/TAZOBACTAM 2.25 GM in NORMAL SALINE 50 ML IV SCH ×5 (00:14→23:58)
[2017-01-26] MEDS: ACETAMINOPHEN 325 MG TABLET PO PRN ×4 (01:47→22:22)
[2017-01-26] MEDS: IPRATROPIUM/ALBUTEROL 0.5-2.5 MG/3 ML AMPUL NEB SCH ×4 (02:32→19:29)
[2017-01-26] MEDS: HEPARIN SOD (PORCINE) 5,000 UNIT/ML 1 ML SYRINGE SUBCUT SCH ×3 (05:35→22:04)
[2017-01-26 07:13] LABS: HEMATOCRIT 28.1 % (36.0-47.0); HEMOGLOBIN 8.9 g/dL (12.0-15.5); HGB HCT DIFFERENCE -1.4; MEAN CORPUSCULAR HEMOGLOBIN 25.9 pg (27.0-33.4); MEAN CORPUSCULAR HGB CONC 31.6 g/dL (32.0-36.0); MEAN CORPUSCULAR VOLUME 82 fl (80-97); RED BLOOD COUNT 3.42 10^6/uL (3.72-5.28); WHITE BLOOD COUNT 12.6 10^3/uL (4.0-10.5)
[2017-01-26 07:24] LABS: ANION GAP 8 (5-19); BLOOD UREA NITROGEN 11 mg/dL (7-20); CALCIUM 9.1 mg/dL (8.4-10.2); CARBON DIOXIDE 36 mmol/L (22-30); CHLORIDE 98 mmol/L (98-107); GLUCOSE 102 mg/dL (75-110); POTASSIUM 4.1 mmol/L (3.6-5.0); SODIUM 142.2 mmol/L (137-145)
[2017-01-26] MEDS: GUAIFENESIN 600 MG TABLET.SA PO SCH ×2 (09:56→22:02)
[2017-01-26] MEDS: PREDNISONE 5 MG TABLET PO SCH (09:56)
[2017-01-26] MEDS: MULTIVITAMIN TABLET PO SCH (09:56)
[2017-01-26] MEDS: DOCUSATE SODIUM 100 MG CAPSULE PO SCH (09:56)
[2017-01-26] MEDS: LANSOPRAZOLE 15 MG TAB.RAP.DR PO SCH ×2 (09:57→18:34)
[2017-01-26] MEDS: ASPIRIN 81 MG TABLET, CHEWABLE PO SCH (09:57)
[2017-01-26] MEDS: METOPROLOL TARTRATE 25 MG TABLET PO SCH ×2 (09:57→22:02)
[2017-01-26] MEDS: TIOTROPIUM BROMIDE DPI 5 CAP/KIT (18 MCG/CAP) IH SCH (09:58)
[2017-01-26] MEDS: BUDESONIDE/FORMOTEROL 80-4.5 MCG 60 PUFF/6.9 GM MDI IH SCH ×2 (09:58→22:02)
--- NOTE | 2017-01-26 12:10 | PDOC PROGRESS REPORT ---
Subjective Progress Note for:: 01/26/17 Subjective:: The patient is currently lying in bed. The patient is much more responsive than she was yesterday. There is been no reported episodes of vomiting or diarrhea. The patient currently denies any pain. The patient had no evidence of aspiration on modified study yesterday. However the patient does get symptomatic with meals and has had evidence of aspiration recurrently. This makes the patient's fourth inpatient stay in the last 6 months. Each of the patient's admissions was noted for pneumonia. Physical Exam Vital Signs: Temp Pulse Resp BP Pulse Ox 97.7 F 89 22 H 165/80 H 96 01/26/17 07:33 01/26/17 07:46 01/26/17 07:46 01/26/17 07:33 01/26/17 07:46 Intake & Output 01/24/17 01/25/17 01/26/17 23:59 23:59 23:59 Intake Total 1947 1515 385 Output Total 1075 5 1250 Balance 872 -510 -865 Weight 56 kg 55.9 kg 59.1 kg General appearance: PRESENT: no acute distress, cooperative Exam: Frail, chronically ill-appearing Head exam: PRESENT: atraumatic, normocephalic Eye exam: PRESENT: conjunctiva pale, EOMI, PERRLA. ABSENT: scleral icterus Ear exam: PRESENT: normal external ear exam Mouth exam: PRESENT: moist, tongue midline Neck exam: ABSENT: carotid bruit, JVD, lymphadenopathy, thyromegaly, tracheal deviation, tracheostomy Respiratory exam: PRESENT: decreased breath sounds, rhonchi, symmetrical, unlabored. ABSENT: rales, tachypnea, wheezes Cardiovascular exam: PRESENT: RRR. ABSENT: diastolic murmur, rubs, systolic murmur Pulses: PRESENT: +1 pedal pulses bilateral Vascular exam: PRESENT: pallor GI/Abdominal exam: PRESENT: normal bowel sounds, soft. ABSENT: distended, guarding, mass, organolmegaly, rebound, tenderness Rectal exam: PRESENT: deferred Extremities exam: PRESENT: full ROM. ABSENT: calf tenderness, clubbing, pedal edema Neurological exam: PRESENT: alert - Delayed, awake, oriented to person. ABSENT : motor sensory deficit Psychiatric exam: PRESENT: appropriate affect, normal mood Skin exam: PRESENT: dry, intact, warm. ABSENT: cyanosis, rash Results Laboratory Results: 01/26/17 06:41 01/26/17 06:41 01/26/17 01/26/17 06:41 06:41 WBC 12.6 H RBC 3.42 L Hgb 8.9 L Hct 28.1 L MCV 82 MCH 25.9 L MCHC 31.6 L RDW 16.0 H Plt Count 452 H Sodium 142.2 Potassium 4.1 Chloride 98 Carbon Dioxide 36 H Anion Gap 8 BUN 11 Creatinine 0.50 L Est GFR ( Amer) > 60 Est GFR (Non-Af Amer) > 60 Glucose 102 Calcium 9.1 Impressions: Chest X-Ray 01/23/17 21:43 IMPRESSION: Increased right basilar airspace disease-effusion. Modified Barium Swallow 01/25/17 12:15 IMPRESSION: NO EVIDENCE OF PENETRATION OR ASPIRATIONPLEASE SEE SPEECH PATHOLOGIST REPORT FOR OTHER FINDINGS AND RECOMMENDATIONS. Assessment & Plan - Diagnosis (1) COPD exacerbation Is this a current diagnosis for this admission?: YesPlan: Secondary to the patient's pneumonia. Will continue nebulizers and follow (2) Right lower lobe pneumonia Qualifiers: Pneumonia type: due to unspecified organism Qualified Code(s): J18.1 - Lobar pneumonia, unspecified organism Is this a current diagnosis for this admission?: YesPlan: It appears the patient has had recurrent aspiration pneumonia. Will continue Zosyn. For now. (3) Acute on chronic respiratory failure with hypoxia and hypercapnia Is this a current diagnosis for this admission?: YesPlan: Will continue supplemental O2. Appears the patient's O2 sat did drop into the mid 80s. No longer requiring BiPAP at this time but will monitor closely. 01/23/17 01/24/17 22:00 05:01 Respiratory 33 H 39 H Rate (4) Chronic indwelling Cade catheter Is this a current diagnosis for this admission?: YesPlan: It appears the patient does have a UTI. Awaiting culture. Continue current antibiotic coverage. It appears that the patient's Cade was due to be changed on the and therefore was rotate this at this time and follow. (5) Sepsis Qualifiers: Sepsis type: sepsis due to unspecified organism Qualified Code(s): A41.9 - Sepsis, unspecified organism Is this a current diagnosis for this admission?: YesPlan: Present on admission. Secondary to the above as well as UTI. Does not appear the patient has had a history of MRSA therefore vancomycin was discontinued and continue current antibiotic coverage for now and await cultures and sensitivities. (6) Compression fracture Is this a current diagnosis for this admission?: YesPlan: Continue supportive measures (7) Dysphagia, unspecified Qualifiers: Dysphagia type: unspecified Qualified Code(s): R13.10 - Dysphagia, unspecified Is this a current diagnosis for this admission?: YesPlan: Consult speech therapy for evaluation. (8) Hypertension Qualifiers: Hypertension type: essential hypertension Qualified Code(s): I10 - Essential (primary) hypertension Is this a current diagnosis for this admission?: YesPlan: Will continue home medications. 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 (10) Anemia of chronic disease Is this a current diagnosis for this admission?: YesPlan: Hemoglobin did drift down with fluid hydration. Will repeat in the a.m. and follow. 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 (13) Lung mass Is this a current diagnosis for this admission?: No (14) Mass of right kidney Is this a current diagnosis for this admission?: No - Time Time Spent with patient: 25-34 minutes Medications reviewed and adjusted accordingly: Yes Anticipated discharge: SNF Within: within 24 hours Disposition: The patient is a DO NOT RESUSCITATE DO NOT INTUBATE. Pending patient's symptomatology and diagnostic findings will reevaluate as needed.
[2017-01-26] MEDS: LACTULOSE SYRUP 20 GM/30 ML UDCUP PO SCH (22:02)
[2017-01-26] MEDS: ALPRAZOLAM 0.5 MG TABLET PO PRN (22:03)
[2017-01-26] MEDS: MIRTAZAPINE 15 MG TABLET PO SCH (22:04)
--- NOTE | 2017-01-26 23:07 | Palliative Consultation Report ---
Consultation From:: NAYELY FARFAN - HPI Chief Complaint: pneumonia HPI: Palliative Care visit 6:45-7:00PM Appreciate consult request for this 89 year old resident of [facility] who has been admitted several times for respiratory distress/pneumonia and is known to me. In spite of her frequent admissions, she does well with antibiotics to return to SNF. At time of my visit patients sister and two other friends were visiting. She was awMrs.Sake and oriented, laying in bed in no distress. She told me she ate her pureed diet and although it didnt taste great, she thought is was much easier to swallow and didnt make her cough. Mrs Restrepo says she has some pain but her medication takes care of it. She denies nausea or vomiting and says she sleeps pretty well. SHe says she is breathing OK now and has no new symptoms. When asked about her life in SNF, she said it is "OK". She is aware that she will be going back to SNF. I asked her if it is OK that she is brought to the hospital when she gets sick and she replied yes. She actually would be eligible to be followed by hospice if she and her family desired, due to her frequent hospitalizations, age and debility. However, her SNF has agreement with one hospice. Onset: Just prior to arrival Onset/Duration: Gradual Quality of Pain: Achy Severity: Mild Associated Symptoms: Productive cough, Shortness of breath Exacerbated by: Food Relieved by: Remaining still Past Medical History(Consults) - General Information Source: Patient, [facility] Records Home Medications: Acetaminophen [Tylenol 325 mg Tablet] 650 mg PO Q4HP PRN 01/24/17 Albuterol Sulfate [Ventolin 0.083% Neb 2.5 mg/3 mL Ampul] 3 ml NEB RTQ4HP PRN Alprazolam [Xanax 0.5 mg Tablet] 0.5 mg PO DAILYP PRN 01/24/17 Aspirin [Aspirin 81 mg Chewable Tablet] 81 mg PO DAILY 01/24/17 Budesonide/Formoterol Fumarate [Symbicort HFA 80-4.5 mcg Inhaler 6.9 gm] 2 puff IH Q12 01/24/17 Diphenhydramine HCl [Benadryl 25 mg Capsule] 25 mg PO Q8HP PRN 01/24/17 Docusate Sodium [Colace 100 mg Capsule] 100 mg PO DAILY 01/24/17 Lactulose [Constulose 10 gm/15 mL Oral Solution] 30 ml PO DAILYP PRN 01/24/17 Metoprolol Tartrate [Lopressor 25 mg Tablet] 25 mg PO Q12 01/24/17 Mirtazapine [Remeron 15 mg Tablet] 7.5 mg PO QHS 01/24/17 Multivits-Min/Iron/FA/Lutein [Centrum Silver Women Tablet] 1 tab PO DAILY Omeprazole 20 mg PO BID 01/24/17 Prednisone [Deltasone 5 mg Tablet] 5 mg PO DAILY 01/24/17 Tiotropium [place] [Spiriva Handihaler 5 Cap/Kit (18 Mcg/Cap)] 1 cap IH DAILY Tramadol HCl [Ultram 50 mg Tablet] 50 mg PO Q6HP PRN 01/24/17 Allergies/Adverse Reactions: codeine [Codeine] Allergy (Verified 09/06/16 22:58) - Social History Lives with: [facility] Family History: COPD, Hypertension, Other Parental Family History Reviewed: No Children Family History Reviewed: No Sibling(s) Family History Reviewed.: No Smoking Status: Former Smoker Frequency of Alcohol Use: None Hx Recreational Drug Use: No Drugs: None Hx Prescription Drug Abuse: No - Past Medical History Cardiac Medical History: Reports: Hx Hypertension Denies: Hx Congestive Heart Failure, Hx DVT, Hx Heart Attack, Hx Hypercholesterolemia, Hx Pulmonary Embolism Pulmonary Medical History: 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 Denies: Hx Seizures Endocrine Medical History: Denies: Hx Diabetes Mellitus Type 1, Hx Diabetes Mellitus Type 2, Hx Hyperthyroidism, Hx Hypothyroidism Renal/ Medical History: Denies: Hx Peritoneal Dialysis GI Medical History: Reports: Hx Gastroesophageal Reflux Disease, Hx Hiatal Hernia. Denies: Hx Cirrhosis, Hx Hepatitis Musculoskeltal Medical History: Reports Hx Arthritis Skin Medical History: Denies Hx Eczema, Denies Hx Psoriasis Psychiatric Medical History: Reports: Hx Depression - No suicidal or homicidal ideation. Infectious Medical History: Denies: Hx Hepatitis Hematology: Reports: Anemia - Surgical History Past Surgical History: Reports: Hx Orthopedic Surgery - Hip Review of systems Constitutional: Malaise EENT: No symptoms reported Cardiovascular: No symptoms reported Respiratory: Cough, Short of breath Gastrointestinal: No symptoms reported Geniturinary: Other - schwartz catheter Musculoskeltal: Back pain Skin: No symptoms reported Neurological/Psychological: Depression, Headaches Ojective:Exam Vital Signs: Temp Pulse Resp BP Pulse Ox 97.8 F 104 H 18 128/55 H 100 01/26/17 20:11 01/26/17 20:11 01/26/17 20:11 01/26/17 20:11 01/26/17 20:11 Intake & Output 01/25/17 01/26/17 01/27/17 06:59 06:59 06:59 Intake Total 1707 1490 1198 Output Total 1275 8365 1225 Balance 432 -1085 -27 Weight 55.9 kg 59.1 kg - General General Appearance: Alert In distress: None - HEENT Head: Normocephalic Eyes: Normal Nasal: Normal Mucous membrane: Normal, Moist - Skin Skin Temperature: Warm, Hot Skin Moisture: Dry Skin Color: Normal Objective-Diagnostic Laboratory: 01/26/17 06:41 01/26/17 06:41 01/26/17 01/26/17 06:41 06:41 WBC 12.6 H RBC 3.42 L Hgb 8.9 L Hct 28.1 L MCV 82 MCH 25.9 L MCHC 31.6 L RDW 16.0 H Plt Count 452 H Sodium 142.2 Potassium 4.1 Chloride 98 Carbon Dioxide 36 H Anion Gap 8 BUN 11 Creatinine 0.50 L Est GFR ( Amer) > 60 Est GFR (Non-Af Amer) > 60 Glucose 102 Calcium 9.1 Plan and Recommendation Plan and Recommendation: Would recommend hospice at SNF to help prevent future hospital izations by offering comfort care at facility. Patient states current medications help relieve pain. Alert and calm. No acute disress. Says she knows she will be going back to [facility]. Already has DNR order. No problems to address, will try to talk to son about future treatment options vs comfort care. She has DNR. Frequent hospitalizaitions, but she does improve with hospitalizations each time. - Time Spent with Patient Time spent with patient: 15 to 30 Minutes Time: 15 min with patient, 15 min chart review
[2017-01-27] MEDS: IPRATROPIUM/ALBUTEROL 0.5-2.5 MG/3 ML AMPUL NEB SCH ×3 (02:06→14:14)
[2017-01-27 04:43] LABS: HEMATOCRIT 26.5 % (36.0-47.0); HEMOGLOBIN 8.2 g/dL (12.0-15.5); HGB HCT DIFFERENCE -1.9; MEAN CORPUSCULAR HEMOGLOBIN 25.7 pg (27.0-33.4); MEAN CORPUSCULAR HGB CONC 30.8 g/dL (32.0-36.0); MEAN CORPUSCULAR VOLUME 83 fl (80-97); RED BLOOD COUNT 3.18 10^6/uL (3.72-5.28); RED CELL DISTRIBUTION WIDTH 16.3 % (11.5-14.0); WHITE BLOOD COUNT 12.5 10^3/uL (4.0-10.5)
[2017-01-27 04:58] LABS: ANION GAP 10 (5-19); BLOOD UREA NITROGEN 11 mg/dL (7-20); CALCIUM 9.1 mg/dL (8.4-10.2); CARBON DIOXIDE 35 mmol/L (22-30); CHLORIDE 96 mmol/L (98-107); CREATININE RESULT 0.46 mg/dL (0.52-1.25); GLUCOSE 96 mg/dL (75-110); POTASSIUM 4.5 mmol/L (3.6-5.0); SODIUM 140.8 mmol/L (137-145)
[2017-01-27] MEDS: PIPERACILLIN SODIUM/TAZOBACTAM 2.25 GM in NORMAL SALINE 50 ML IV SCH (05:44)
[2017-01-27] MEDS: HEPARIN SOD (PORCINE) 5,000 UNIT/ML 1 ML SYRINGE SUBCUT SCH ×2 (05:45→13:23)
[2017-01-27] MEDS: METOPROLOL TARTRATE 25 MG TABLET PO SCH (09:03)
[2017-01-27] MEDS: GUAIFENESIN 600 MG TABLET.SA PO SCH (09:03)
[2017-01-27] MEDS: ACETAMINOPHEN 325 MG TABLET PO PRN ×2 (09:03→17:07)
[2017-01-27] MEDS: ASPIRIN 81 MG TABLET, CHEWABLE PO SCH (09:03)
[2017-01-27] MEDS: DOCUSATE SODIUM 100 MG CAPSULE PO SCH (09:03)
[2017-01-27] MEDS: MULTIVITAMIN TABLET PO SCH (09:03)
[2017-01-27] MEDS: PREDNISONE 5 MG TABLET PO SCH (09:03)
[2017-01-27] MEDS: LANSOPRAZOLE 15 MG TAB.RAP.DR PO SCH ×2 (09:03→17:08)
[2017-01-27] MEDS: BUDESONIDE/FORMOTEROL 80-4.5 MCG 60 PUFF/6.9 GM MDI IH SCH (09:04)
[2017-01-27] MEDS: TIOTROPIUM BROMIDE DPI 5 CAP/KIT (18 MCG/CAP) IH SCH (09:04)
[2017-01-27] MEDS ORDERED: PHENAZOPYRIDINE HCL 100 MG TABLET PO PRN (09:24)
[2017-01-27] MEDS ORDERED: PHENAZOPYRIDINE HCL 200 MG TABLET PO ONE (09:24)
--- NOTE | 2017-01-27 09:28 | PDOC TRANSFER SUMMARY ---
General - Admit/Disc Date/PCP Admission Date/Primary Care Provider: 01/23/17 23:32 RUBEN FU MD Discharge Date: 01/27/17 - Discharge Diagnosis (1) COPD exacerbation Is this a current diagnosis for this admission?: Yes (2) Aspiration pneumonia Is this a current diagnosis for this admission?: Yes (3) Acute on chronic respiratory failure with hypoxia and hypercapnia Is this a current diagnosis for this admission?: Yes (4) polymicrobial UTI Is this a current diagnosis for this admission?: Yes (5) Chronic indwelling Cade catheter Is this a current diagnosis for this admission?: Yes (6) Sepsis Is this a current diagnosis for this admission?: Yes (7) Compression fracture Is this a current diagnosis for this admission?: Yes (8) Dysphagia, unspecified Is this a current diagnosis for this admission?: Yes (9) Hypertension Is this a current diagnosis for this admission?: Yes (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) Is this a current diagnosis for this admission?: Yes (11) Anemia of chronic disease Is this a current diagnosis for this admission?: Yes (12) Ulcer of left heel Is this a current diagnosis for this admission?: Yes (13) Do not resuscitate Is this a current diagnosis for this admission?: Yes (14) Lung mass Is this a current diagnosis for this admission?: No (15) Mass of right kidney Is this a current diagnosis for this admission?: No - Additional Information Resuscitation Status: Do Not Resuscitate - DO NOT RESUSCITATE DO NOT INTUBATE Discharge Diet: As Tolerated - pured, regular liquids Discharge Activity: Activity As Tolerated Home Medications: Acetaminophen [Tylenol 325 mg Tablet] 650 mg PO Q4HP PRN 01/24/17 Albuterol Sulfate [Ventolin 0.083% Neb 2.5 mg/3 mL Ampul] 3 ml NEB RTQ4HP PRN Aspirin [Aspirin 81 mg Chewable Tablet] 81 mg PO DAILY 01/24/17 Budesonide/Formoterol Fumarate [Symbicort HFA 80-4.5 mcg Inhaler 6.9 gm] 2 puff IH Q12 01/24/17 Diphenhydramine HCl [Benadryl 25 mg Capsule] 25 mg PO Q8HP PRN 01/24/17 Docusate Sodium [Colace 100 mg Capsule] 100 mg PO DAILY 01/24/17 Lactulose [Constulose 10 gm/15 mL Oral Solution] 30 ml PO DAILYP PRN 01/24/17 Metoprolol Tartrate [Lopressor 25 mg Tablet] 25 mg PO Q12 01/24/17 Mirtazapine [Remeron 15 mg Tablet] 7.5 mg PO QHS 01/24/17 Multivits-Min/Iron/FA/Lutein [Centrum Silver Women Tablet] 1 tab PO DAILY Omeprazole 20 mg PO BID 01/24/17 Prednisone [Deltasone 5 mg Tablet] 5 mg PO DAILY 01/24/17 Tiotropium [place] [Spiriva Handihaler 5 Cap/Kit (18 Mcg/Cap)] 1 cap IH DAILY Tramadol HCl [Ultram 50 mg Tablet] 50 mg PO Q6HP PRN 01/24/17 Alprazolam [Xanax 0.5 mg Tablet] 0.5 mg PO DAILYP PRN #4 tablet 01/27/17 Ciprofloxacin HCl [Cipro 500 mg Tablet] 500 mg PO Q12 #18 tablet 01/27/17 Phenazopyridine HCl [Pyridium 100 mg Tablet] 100 mg PO Q8HP PRN tablet History of Present Illness Admission Date/PCP: 01/23/17 23:32 RUBEN FU MD Patient complains of: Shortness of breath and cough History of Present Illness: VINCE ALVARADO is a 89 year old female with a past medical history of COPD, chronic indwelling Cade, anxiety and lung mass. She had been her usual state of health until approximately a week ago noted have exceptional shortness of breath and cough initially unproductive becoming productive than associated with a subjective fever and diaphoresis prompting him to seek evaluation emergency room where she's found to have sepsis with bilateral pneumonia and a moderate right-sided pleural effusion with leukocytosis and tachycardia. Her son is at bedside that states she frequently coughs while eating but has had no infectious contacts. CODE STATUS is verified DO NOT RESUSCITATE Hospital Course Hospital Course: The patient was admitted to [facility]. The patient was placed on scheduled nebs, IV antibiotic coverage, expectorants, supplemental O2, BiPAP, incentive spirometry and flutter valve. Sputum culture was unable to be obtained. The patient was transitioned back to baseline oxygen. The patient did receive Zosyn for gram- negative and anaerobic coverage. The patient was transitioned to Cipro to cover aspiration. The patient underwent speech therapy evaluation and was not noted to aspirate all modified. However the patient is noted to be symptomatic during meals. Recommendations are to continue the patient's pured diet with aspiration precautions. Urine analysis and culture was obtained. The patient had findings suggestive of a urinary tract infection. Patient's urine culture revealed providencia and pseudomonas which was sensitive to CIPRO and the patient received appropriate antibiotic coverage. The patient's symptoms completely resolved. The patient' s catheter was due to be changed. The patient's indwelling catheter was placed on 01/24/2017. This is a chronic catheter given the patient's urinary retention. Given the patient's multiple readmissions for aspiration pneumonia and ER contacts the patient was seen and evaluated by palliative care. Recommendations were made for hospice support upon returning to senior living facility. Physical Exam Vital Signs: Temp Pulse Resp BP Pulse Ox 98.4 F 96 24 H 147/60 H 100 01/27/17 07:28 01/27/17 07:28 01/27/17 07:28 01/27/17 07:28 01/27/17 07:28 Intake & Output 01/25/17 01/26/17 01/27/17 23:59 23:59 23:59 Intake Total 1515 1583 150 Output Total 5 2475 Balance -510 -892 150 Weight 55.9 kg 59.1 kg 60.5 kg General appearance: PRESENT: no acute distress, cooperative Exam: Frail, chronically ill-appearing Head exam: PRESENT: atraumatic, normocephalic Eye exam: PRESENT: conjunctiva pale, EOMI, PERRLA. ABSENT: scleral icterus Ear exam: PRESENT: normal external ear exam Mouth exam: PRESENT: moist, tongue midline Neck exam: ABSENT: carotid bruit, JVD, lymphadenopathy, thyromegaly, tracheal deviation, tracheostomy Respiratory exam: PRESENT: decreased breath sounds, rhonchi, symmetrical, unlabored. ABSENT: rales, tachypnea, wheezes Cardiovascular exam: PRESENT: RRR. ABSENT: diastolic murmur, rubs, systolic murmur Pulses: PRESENT: +1 pedal pulses bilateral Vascular exam: PRESENT: pallor GI/Abdominal exam: PRESENT: normal bowel sounds, soft. ABSENT: distended, guarding, mass, organolmegaly, rebound, tenderness Rectal exam: PRESENT: deferred Extremities exam: PRESENT: full ROM. ABSENT: calf tenderness, clubbing, pedal edema Neurological exam: PRESENT: alert - Delayed, awake, oriented to person. ABSENT : motor sensory deficit Psychiatric exam: PRESENT: appropriate affect, normal mood Skin exam: PRESENT: dry, intact, warm. ABSENT: cyanosis, rash Results Laboratory Results: Labs- Last Values WBC 12.5 10^3/uL (4.0-10.5) H 01/27/17 04:22 RBC 3.18 10^6/uL (3.72-5.28) L 01/27/17 04:22 Hgb 8.2 g/dL (12.0-15.5) L 01/27/17 04:22 Hct 26.5 % (36.0-47.0) L 01/27/17 04:22 MCV 83 fl (80-97) 01/27/17 04:22 MCH 25.7 pg (27.0-33.4) L 01/27/17 04:22 MCHC 30.8 g/dL (32.0-36.0) L 01/27/17 04:22 RDW 16.3 % (11.5-14.0) H 01/27/17 04:22 Plt Count 425 10^3/uL (150-450) 01/27/17 04:22 Total Counted 100 01/24/17 05:45 Seg Neutrophils % Not Reportable 01/24/17 05:45 Seg Neuts % (Manual) 95 % (42-78) H 01/24/17 05:45 Band Neutrophils % 3 % (3-5) 01/24/17 05:45 Lymphocytes % Not Reportable 01/24/17 05:45 Lymphocytes % (Manual) 1 % (13-45) L 01/24/17 05:45 Monocytes % Not Reportable 01/24/17 05:45 Monocytes % (Manual) 1 % (3-13) L 01/24/17 05:45 Eosinophils % Not Reportable 01/24/17 05:45 Eosinophils % (Manual) 0 % (0-6) 01/24/17 05:45 Basophils % Not Reportable 01/24/17 05:45 Basophils % (Manual) 0 % (0-2) 01/24/17 05:45 Absolute Neutrophils Not Reportable 01/24/17 05:45 Abs Neuts (Manual) 13.5 10^3/uL (1.7-8.2) H 01/24/17 05:45 Absolute Lymphocytes Not Reportable 01/24/17 05:45 Abs Lymphs (Manual) 0.1 10^3/uL (0.5-4.7) L 01/24/17 05:45 Absolute Monocytes Not Reportable 01/24/17 05:45 Abs Monocytes (Manual) 0.1 10^3/uL (0.1-1.4) 01/24/17 05:45 Absolute Eosinophils Not Reportable 01/24/17 05:45 Absolute Eos (Manual) 0.0 10^3/uL (0.0-0.6) 01/24/17 05:45 Absolute Basophils Not Reportable 01/24/17 05:45 Abs Basophils (Manual) 0.0 10^3/uL (0.0-0.2) 01/24/17 05:45 Toxic Granulation SLIGHT 01/24/17 05:45 Platelet Comment ADEQUATE 01/24/17 05:45 Polychromasia SLIGHT 01/23/17 22:04 Hypochromasia SLIGHT 01/23/17 22:04 Poikilocytosis SLIGHT 01/24/17 05:45 Anisocytosis 1+ 01/24/17 05:45 Ovalocytes SLIGHT 01/24/17 05:45 VBG pH 7.31 (7.30-7.42) 01/23/17 22:24 VBG pCO2 62.9 mmHg (35-63) 01/23/17 22:24 VBG HCO3 30.7 mmol/L (20-32) 01/23/17 22:24 VBG Base Excess 3.3 mmol/L 01/23/17 22:24 Sodium 140.8 mmol/L (137-145) 01/27/17 04:22 Potassium 4.5 mmol/L (3.6-5.0) 01/27/17 04:22 Chloride 96 mmol/L (98-107) L 01/27/17 04:22 Carbon Dioxide 35 mmol/L (22-30) H 01/27/17 04:22 Anion Gap 10 (5-19) 01/27/17 04:22 BUN 11 mg/dL (7-20) 01/27/17 04:22 Creatinine 0.46 mg/dL (0.52-1.25) L 01/27/17 04:22 Est GFR ( Amer) > 60 (>60) 01/27/17 04:22 Est GFR (Non-Af Amer) > 60 (>60) 01/27/17 04:22 Glucose 96 mg/dL (75-110) 01/27/17 04:22 Lactic Acid 0.9 mmol/L (0.7-2.1) 01/23/17 22:04 Calcium 9.1 mg/dL (8.4-10.2) 01/27/17 04:22 Magnesium 2.0 mg/dL (1.6-2.3) 01/27/17 04:22 Total Bilirubin 0.6 mg/dL (0.2-1.3) 01/23/17 22:04 Direct Bilirubin 0.2 mg/dL (0.0-0.4) 01/23/17 22:04 Indirect Bilirubin Not Reportable 01/23/17 22:04 Neonat Total Bilirubin Not Reportable 01/23/17 22:04 AST 17 U/L (14-36) 01/23/17 22:04 ALT 24 U/L (9-52) 01/23/17 22:04 Alkaline Phosphatase 87 U/L (38-126) 01/23/17 22:04 Creatine Kinase < 20 U/L (30-135) L 01/23/17 22:04 CK-MB (CK-2) 0.78 ng/mL (<4.55) 01/23/17 22:04 Troponin I 0.015 ng/mL 01/23/17 22:04 NT-Pro-B Natriuret Pep 986 pg/mL (<450) H 01/23/17 22:04 Total Protein 6.3 g/dL (6.3-8.2) 01/23/17 22:04 Albumin 3.7 g/dL (3.5-5.0) 01/23/17 22:04 Urine Color YELLOW 01/23/17 22:04 Urine Appearance CLOUDY 01/23/17 22:04 Urine pH 5.0 (5.0-9.0) 01/23/17 22:04 Ur Specific [place] 1.013 01/23/17 22:04 Urine Protein 30 mg/dL (NEGATIVE) H 01/23/17 22:04 Urine Glucose (UA) NEGATIVE mg/dL (NEGATIVE) 01/23/17 22:04 Urine Ketones NEGATIVE mg/dL (NEGATIVE) 01/23/17 22:04 Urine Blood SMALL (NEGATIVE) H 01/23/17 22:04 Urine Nitrite NEGATIVE (NEGATIVE) 01/23/17 22:04 Urine Bilirubin NEGATIVE (NEGATIVE) 01/23/17 22:04 Urine Urobilinogen NEGATIVE mg/dL (<2.0) 01/23/17 22:04 Ur Leukocyte Esterase LARGE (NEGATIVE) H 01/23/17 22:04 Urine WBC (Auto) >182 /HPF 01/23/17 22:04 Urine RBC (Auto) 5 /HPF 01/23/17 22:04 Urine Bacteria (Auto) 1+ /HPF 01/23/17 22:04 Urine WBC Clumps MOD /HPF 01/23/17 22:04 Squamous Epi Cells Auto 1 /HPF 01/23/17 22:04 Urine Mucus (Auto) OCC /LPF 01/23/17 22:04 Urine Ascorbic Acid NEGATIVE (NEGATIVE) 01/23/17 22:04 01/23/17 23:00 Blood Culture - Preliminary Blood NO GROWTH AFTER 72 HOURS 01/23/17 22:04 Urine Culture - Final Cade Catheter Pseudomonas Aeruginosa Providencia Stuartii 01/23/17 22:04 Blood Culture - Preliminary Blood NO GROWTH AFTER 72 HOURS Impressions: Chest X-Ray 01/23/17 21:43 IMPRESSION: Increased right basilar airspace disease-effusion. Modified Barium Swallow 01/25/17 12:15 IMPRESSION: NO EVIDENCE OF PENETRATION OR ASPIRATIONPLEASE SEE SPEECH PATHOLOGIST REPORT FOR OTHER FINDINGS AND RECOMMENDATIONS. Transfer Plan - Disposition Transfer Plan: on this transfer including assessment, plan, physical examination, specialty collaboration, and patient education is 35 minutes. - Time Spent with Patient Time spent with patient: Greater than 30 Minutes Qualifiers PATEINT BEING DISCHARGED WITH ANY OF THE FOLLOWING DIAGNOSIS?: No
[2017-01-27] MEDS ORDERED: CIPROFLOXACIN HCL 500 MG TABLET PO SCH (10:00)
[2017-01-27 16:54] VITALS: BP 114/71
== END 2017-01-27 20:40 | DRG 871 ==
LOC: ER 21:27 → UNDOADMIN 23:29 → EH 23:29 → 3W 01-24 02:15
PROVIDERS: ADMIT Internal Medicine; ATTEND Internal Medicine
PROC: 5A09457 Assistance with Respiratory Ventilation, 24-96 Consecutive Hours, Continuous Positive Airway Pressure (ICD-10-PCS; principal; 2017-01-24)
PROC: 3E0F73Z Introduction of Anti-inflammatory into Respiratory Tract, Via Natural or Artificial Opening (ICD-10-PCS; 2017-01-24)
DX: A41.9 Sepsis, unspecified organism (principal); J18.1 Lobar pneumonia, unspecified organism; J69.0 Pneumonitis due to inhalation of food and vomit; J96.21 Acute and chronic respiratory failure with hypoxia; J96.22 Acute and chronic respiratory failure with hypercapnia; N39.0 Urinary tract infection, site not specified; J44.1 Chronic obstructive pulmonary disease with (acute) exacerbation; J44.0 Chronic obstructive pulmonary disease with (acute) lower respiratory infection; M48.50XA Collapsed vertebra, not elsewhere classified, site unspecified, initial encounter for fracture; E22.2 Syndrome of inappropriate secretion of antidiuretic hormone; L97.429 Non-pressure chronic ulcer of left heel and midfoot with unspecified severity; Z66 Do not resuscitate; R65.20 Severe sepsis without septic shock; B96.89 Other specified bacterial agents as the cause of diseases classified elsewhere; R13.10 Dysphagia, unspecified; I10 Essential (primary) hypertension; R91.8 Other nonspecific abnormal finding of lung field; N28.89 Other specified disorders of kidney and ureter; F41.9 Anxiety disorder, unspecified; G43.909 Migraine, unspecified, not intractable, without status migrainosus; M19.90 Unspecified osteoarthritis, unspecified site; K44.9 Diaphragmatic hernia without obstruction or gangrene; F32.9 Major depressive disorder, single episode, unspecified; K21.9 Gastro-esophageal reflux disease without esophagitis; B95.2 Enterococcus as the cause of diseases classified elsewhere; D63.8 Anemia in other chronic diseases classified elsewhere; Z86.14 Personal history of Methicillin resistant Staphylococcus aureus infection; Z51.5 Encounter for palliative care; Z87.891 Personal history of nicotine dependence; Z88.6 Allergy status to analgesic agent; Z99.81 Dependence on supplemental oxygen; Z79.82 Long term (current) use of aspirin; Z79.899 Other long term (current) drug therapy; Z83.6 Family history of other diseases of the respiratory system; Z82.49 Family history of ischemic heart disease and other diseases of the circulatory system
CPT/HCPCS: 36415; 71010; 74230; 80048; 80053; 81001; 82550; 82553; 82803; 83605; 83735; 83880; 84484; 85025; 85027; 87040; 87086; 87088; 87186; 93005; 93010; 94640; 94660; 94667; 96365; 99291; G8996-GN; G8997-GN; G8998-GN; J1644; J1956; J2543; J3370; J3480; J3490; J7030; J7512; J7620

== ENCOUNTER 2017-01-31 15:25 | Inpatient (IN) | payer MEDICARE, MEDICAID ==
[2017-01-31] MEDS ORDERED: NORMAL SALINE 1000 ML 1,000 ML IV ONE (16:23)
[2017-01-31 17:51] LABS: APPEARANCE,URINE CLEAR; BILIRUBIN,URINE NEGATIVE (NEGATIVE); GLUCOSE, URINE NEGATIVE (NEGATIVE); KETONES,URINE 20 mg/dL (NEGATIVE); LEUKOCYTE ESTERASE,URINE NEGATIVE (NEGATIVE); NITRITE,URINE NEGATIVE (NEGATIVE); PROTEIN,URINE NEGATIVE (NEGATIVE); URINE SPECIFIC GRAVITY 1.016
[2017-01-31] MEDS ORDERED: LEVOFLOXACIN 500 MG/D5W RTU 100 ML IV ONE (18:28)
[2017-01-31 19:30] LABS: HEMATOCRIT 26.2 % (36.0-47.0); HGB HCT DIFFERENCE -2.2; MEAN CORPUSCULAR HEMOGLOBIN 25.7 pg (27.0-33.4); MEAN CORPUSCULAR HGB CONC 30.5 g/dL (32.0-36.0); MEAN CORPUSCULAR VOLUME 84 fl (80-97); RED BLOOD COUNT 3.12 10^6/uL (3.72-5.28); RED CELL DISTRIBUTION WIDTH 16.5 % (11.5-14.0)
[2017-01-31 19:46] LABS: BAND NEUTROPHILS % (MANUAL) 3 % (3-5); BASOPHILS % (MANUAL) 0 % (0-2); EOSINOPHILS % (MANUAL) 1 % (0-6); LYMPHOCYTES % (MANUAL) 16 % (13-45); TOTAL CELLS COUNTED 100
[2017-01-31 19:47] LABS: ALANINE AMINOTRANSFERASE 20 U/L (9-52); ALBUMIN 2.9 g/dL (3.5-5.0); ALKALINE PHOSPHATASE 65 U/L (38-126); ASPARTATE AMINO TRANSFERASE 17 U/L (14-36); BILIRUBIN,DIRECT 0.5 mg/dL (0.0-0.4); BILIRUBIN,TOTAL 0.6 mg/dL (0.2-1.3); BLOOD UREA NITROGEN 9 mg/dL (7-20); CALCIUM 9.3 mg/dL (8.4-10.2); CREATININE RESULT 0.39 mg/dL (0.52-1.25); GLUCOSE 91 mg/dL (75-110); LIPASE 40.6 U/L (23-300); TOTAL PROTEIN 5.5 g/dL (6.3-8.2)
[2017-01-31 19:48] LABS: ANISOCYTOSIS 1+; TOXIC GRANULATION SLIGHT
[2017-01-31 19:49] LABS: STOMATOCYTES 1+
[2017-01-31 20:09] LABS: CHLORIDE 87 mmol/L (98-107); POTASSIUM 4.9 mmol/L (3.6-5.0); SODIUM 135.7 mmol/L (137-145)
[2017-01-31 20:10] LABS: ANION GAP 5 (5-19)
[2017-01-31 20:12] LABS: CARBON DIOXIDE 44 mmol/L (22-30)
[2017-01-31] MEDS ORDERED: GUAIFENESIN SYRP 200 MG/10 ML UDC PO PRN (20:19)
[2017-01-31] MEDS ORDERED: ACETAMINOPHEN 325 MG TABLET PO PRN (20:19)
--- NOTE | 2017-01-31 20:30 | ER Document Report ---
ED General - General Chief Complaint: Altered Mental Status Stated Complaint: ALTERED MENTAL STATUS Time Seen by Provider: 01/31/17 15:38 TRAVEL OUTSIDE OF THE [place] IN LAST 30 DAYS: No - HPI Patient complains to provider of: altered mental status Notes: Patient's coming in for altered mental status. Patient is a DO NOT RESUSCITATE. Patient has multiple admissions for pneumonia and encephalopathy in the past. There is no paperwork with patient at this time from [facility]-way. Most of the history of present illness is obtained from previous visits. Patient has no complaints however on examination patient is tachycardic. 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 Denies: Hx Seizures Endocrine Medical History: Denies: Hx Diabetes Mellitus Type 1, Hx Diabetes Mellitus Type 2, Hx Hyperthyroidism, Hx Hypothyroidism Renal/ Medical History: Denies: Hx Peritoneal Dialysis GI Medical History: Reports: Hx Gastroesophageal Reflux Disease, Hx Hiatal Hernia. Denies: Hx Cirrhosis, Hx Hepatitis Musculoskeltal Medical History: Reports Hx Arthritis Skin Medical History: Denies Hx Eczema, Denies Hx Psoriasis Psychiatric Medical History: Reports: Hx Depression - No suicidal or homicidal ideation. Infectious Medical History: Denies: Hx Hepatitis Past Surgical History: Reports: Hx Orthopedic Surgery - Hip - Immunizations Hx Diphtheria, Pertussis, Tetanus Vaccination: Yes Hx Pneumococcal Vaccination: 09/25/12 Review of Systems - Review of Systems Notes: Dementia Physical Exam - Vital signs Vitals: Resp BP Pulse Ox 10 L 127/80 H 99 01/31/17 13:43 01/31/17 13:43 01/31/17 13:43 Interpretation: Tachycardic - General General appearance: Appears well, Alert - HEENT Head: Normocephalic, Atraumatic Eyes: Normal Pupils: PERRL - Respiratory Respiratory status: No respiratory distress Chest status: Nontender Breath sounds: Rhonchi Chest palpation: Normal - Cardiovascular Rhythm: Regular, Tachycardia Heart sounds: Normal auscultation Murmur: No - Abdominal Inspection: Normal Distension: No distension Bowel sounds: Normal Tenderness: Nontender Organomegaly: No organomegaly - Back Back: Normal, Nontender - Extremities General upper extremity: Normal inspection, Nontender, Normal color, Normal ROM , Normal temperature General lower extremity: Normal inspection, Nontender, Normal color, Normal ROM , Normal temperature, Normal weight bearing. No: Shun's sign - Neurological Neuro grossly intact: Yes Cognition: Normal Orientation: AAOx4 [place]ie Coma Scale Eye Opening: Spontaneous [place] Coma Scale Verbal: Oriented [place] Coma Scale Motor: Obeys Commands [place] Coma Scale Total: 15 Speech: Normal Motor strength normal: LUE, RUE, LLE, RLE Sensory: Normal - Psychological Associated symptoms: Normal affect, Normal mood - Skin Skin Temperature: Warm Skin Moisture: Dry Skin Color: Normal Course - Re-evaluation Re-evalutation: 01/31/17 20:28 Patient is a DO NOT RESUSCITATE. Did discuss with family bedside about making the patient comfort measures. However at this time they request treatment. Chest x-ray shows continued chest abnormalities chest mass with possible increase in infiltrate. Patient was given a dose of Levaquin for possible aspiration pneumonia. Laboratory data showed elevated bicarbonate. Patient is on been hypoxic during her ER visit here will obtain an ABG. Discussed the hospitalist will the patient on BiPAP awaiting ABG results. Patient was placed on telemetry. Family was updated. - Vital Signs Vital signs: Temp Pulse Resp BP Pulse Ox 98.8 F 118 H 35 H 124/75 100 01/31/17 16:47 01/31/17 17:58 01/31/17 19:00 01/31/17 18:32 01/31/17 19:00 - Laboratory Result Diagrams: 01/31/17 19:08 01/31/17 19:08 Laboratory results interpreted by me: 01/31/17 01/31/17 01/31/17 17:32 19:08 19:08 RBC 3.12 L Hgb 8.0 L Hct 26.2 L MCH 25.7 L MCHC 30.5 L RDW 16.5 H Plt Count 550 H Sodium 135.7 L Chloride 87 L Carbon Dioxide 44 H* Creatinine 0.39 L Direct Bilirubin 0.5 H Total Protein 5.5 L Albumin 2.9 L Urine Ketones 20 H Urine Urobilinogen 2.0 H Discharge - Discharge Clinical Impression: Chronic indwelling Cade catheter, Do not resuscitate, Lung mass Pneumonia Qualifiers: Aspiration pneumonia type: unspecified Laterality: unspecified laterality Lung location: unspecified part of lung Condition: Poor [facility] Admitted: Telemetry
[2017-01-31 20:39] LABS: ARTERIAL BLOOD BASE EXCESS 17.5 mmol/L; ARTERIAL BLOOD O2 SATURATION 94.3 % (94-98)
[2017-01-31] MEDS ORDERED: LEVOFLOXACIN 750 MG/D5W RTU 150 ML IV SCH (21:00)
[2017-01-31] MEDS ORDERED: MIRTAZAPINE 15 MG TABLET PO SCH (22:00)
[2017-01-31] MEDS: HEPARIN SOD (PORCINE) 5,000 UNIT/ML 1 ML SYRINGE SUBCUT SCH (23:43)
[2017-02-01] MEDS: METOPROLOL TARTRATE 25 MG TABLET PO SCH ×2 (00:06→10:33)
--- NOTE | 2017-02-01 00:40 | PDOC H&P ---
History of Present Illness Admission Date/PCP: 01/31/17 20:19 RUBEN FU MD Patient complains of: Altered mental status History of Present Illness: VINCE ALVARADO is a 89 year old female with a past medical history of lung mass, blindness, COPD, with recurrent aspiration, indwelling Cade, anxiety, and dementia. Patient been her usual state of health until approximately 24 hours prior to presentation. Her son at bedside report she had severe delirium requiring sedation of an unknown agent resulting in profound sedation and subsequently unarousable prompting her evaluation emergency room. In the emergency room she has evidence for hypercapnia with a bicarbonate of 44, she is placed on BiPAP and ABG is pending and is referred to the hospitalist for admission. Patient appears comfortable on BiPAP Past Medical History Cardiac Medical History: Reports: Hypertension Denies: Congestive Heart Failure, DVT, Myocardial Infarction, Hyperlipidema, Pulmonary Embolism Pulmonary Medical History: Reports: Chronic Obstructive Pulmonary Disease (COPD ) - Oxygen dependent, Pneumonia Neurological Medical History: Reports: Migraine - Chronic intermittent headaches Denies: Seizures Endocrine Medical History: Denies: Diabetes Mellitus Type 1, Diabetes Mellitus Type 2, Hyperthyroidism, Hypothyroidism GI Medical History: Reports: Gastroesophageal Reflux Disease, Hiatal Hernia Denies: Cirrhosis, Hepatitis Musculoskeltal Medical History: Reports: Arthritis Skin Medical History: Denies: Eczema, Psoriasis Psychiatric Medical History: Reports: Dementia - Left arm pill-rolling of Parkinson's suggest Lewy body dementia, Depression - No suicidal or homicidal ideation. Hematology: Reports: Anemia Past Surgical History Past Surgical History: Reports: Orthopedic Surgery - Hip Social History Information Source: Relative, [facility] Records Lives with: Correction Smoking Status: Unknown if Ever Smoked Frequency of Alcohol Use: None Hx Recreational Drug Use: No Drugs: None Hx Prescription Drug Abuse: No - Advance Directive Resuscitation Status: Do Not Resuscitate Family History Family History: COPD, Hypertension, Other Parental Family History Reviewed: Yes Children Family History Reviewed: Yes Sibling(s) Family History Reviewed.: Yes Medication/Allergy Home Medications: Acetaminophen [Tylenol 325 mg Tablet] 650 mg PO Q4HP PRN 01/24/17 Albuterol Sulfate [Ventolin 0.083% Neb 2.5 mg/3 mL Ampul] 3 ml NEB RTQ4HP PRN Aspirin [Aspirin 81 mg Chewable Tablet] 81 mg PO DAILY 01/24/17 Budesonide/Formoterol Fumarate [Symbicort HFA 80-4.5 mcg Inhaler 6.9 gm] 2 puff IH Q12 01/24/17 Diphenhydramine HCl [Benadryl 25 mg Capsule] 25 mg PO Q8HP PRN 01/24/17 Docusate Sodium [Colace 100 mg Capsule] 100 mg PO DAILY 01/24/17 Lactulose [Constulose 10 gm/15 mL Oral Solution] 30 ml PO QHS 01/24/17 Metoprolol Tartrate [Lopressor 25 mg Tablet] 25 mg PO Q12 01/24/17 Mirtazapine [Remeron 15 mg Tablet] 7.5 mg PO QHS 01/24/17 Multivits-Min/Iron/FA/Lutein [Centrum Silver Women Tablet] 1 tab PO DAILY Omeprazole 20 mg PO BID 01/24/17 Prednisone [Deltasone 5 mg Tablet] 5 mg PO DAILY 01/24/17 Tiotropium Risingsun [Spiriva Handihaler 5 Cap/Kit (18 Mcg/Cap)] 1 cap IH DAILY Tramadol HCl [Ultram 50 mg Tablet] 50 mg PO Q6HP PRN 01/24/17 Alprazolam [Xanax 0.5 mg Tablet] 0.5 mg PO DAILYP PRN #4 tablet 01/27/17 Allergies/Adverse Reactions: codeine [Codeine] Allergy (Verified 09/06/16 22:58) Review of Systems ROS unobtainable: Due to mental status Physical Exam Vital Signs: Temp Pulse Resp BP Pulse Ox 98.8 F 121 H 25 H 108/68 95 01/31/17 16:47 01/31/17 23:36 02/01/17 00:00 01/31/17 23:00 02/01/17 00:00 Intake & Output 01/30/17 01/31/17 02/01/17 11:59 11:59 11:59 Weight 56.699 kg General appearance: PRESENT: mild distress, other - Obtunded. ABSENT: cooperative, disheveled, hard of hearing Head exam: PRESENT: atraumatic, normocephalic Eye exam: PRESENT: conjunctiva pink, EOMI, PERRLA. ABSENT: scleral icterus Ear exam: PRESENT: normal external ear exam Mouth exam: PRESENT: moist, tongue midline Neck exam: ABSENT: carotid bruit, JVD, lymphadenopathy, thyromegaly Respiratory exam: PRESENT: accessory muscle use, crackles, prolonged expiratory phas, symmetrical, tachypnea. ABSENT: rhonchi, stridor Cardiovascular exam: PRESENT: RRR, +S1, systolic murmur. ABSENT: diastolic murmur, rubs Pulses: PRESENT: normal dorsalis pedis pul Vascular exam: PRESENT: normal capillary refill GI/Abdominal exam: PRESENT: normal bowel sounds, soft. ABSENT: distended, guarding, mass, organolmegaly, rebound, tenderness Rectal exam: PRESENT: deferred Extremities exam: PRESENT: full ROM. ABSENT: calf tenderness, clubbing, pedal edema Neurological exam: PRESENT: alert, awake, oriented to person, oriented to place , oriented to time, oriented to situation, CN II-XII grossly intact. ABSENT: motor sensory deficit Psychiatric exam: PRESENT: appropriate affect, normal mood. ABSENT: homicidal ideation, suicidal ideation Skin exam: PRESENT: dry, intact, warm, other - Left upper extremity ecchymosis without open ulcer or drainage. ABSENT: cyanosis, rash Results Laboratory Results: 01/31/17 20:25 Carbonic Acid 3.01 H HCO3/H2CO3 Ratio 15:1 ABG pH 7.29 L ABG pCO2 100.1 H* ABG pO2 84.3 ABG HCO3 47.2 H ABG O2 Saturation 94.3 ABG Base Excess 17.5 FiO2 3L Impressions: Chest X-Ray 01/31/17 16:23 IMPRESSION: Bibasilar densities as noted above. Assessment & Plan - Diagnosis (1) Acute on chronic respiratory failure with hypoxia and hypercapnia Is this a current diagnosis for this admission?: YesPlan: Chronic acute exacerbation secondary to dementia with delirium requiring sedation. Monitored floor, supportive care, BiPAP, follow-up ABG and a.m. chemistry and CBC. Discussed with family and team members concern for recurrence if patient receives sedation for delirium. (2) Dementia Qualifiers: Dementia type: Parkinson's disease Dementia behavioral disturbance: with behavioral disturbance Qualified Code(s): G20 - Parkinson's disease ; F02.81 - Dementia in other diseases classified elsewhere with behavioral disturbance Is this a current diagnosis for this admission?: YesPlan: Supportive care recommending comfort measures. Patient is intolerant of sedation causing hypercapnic respiratory failure. Will initiate upper limb restraints and mittens if threat to IV removal or injury (3) Anemia of chronic disease Is this a current diagnosis for this admission?: YesPlan: Chronic and stable at baseline consider outpatient therapy (4) Dysphagia, unspecified Qualifiers: Dysphagia type: unspecified Qualified Code(s): R13.10 - Dysphagia, unspecified Is this a current diagnosis for this admission?: YesPlan: Intermittent aspiration continue modified consistency diet and thickened liquids - Time Time Spent: 50 to 70 Minutes - Inpatient Certification Medical Necessity: Need Close Monitoring Due to Risk of Patient Decompensation
[2017-02-01] MEDS ORDERED: METOPROLOL TARTRATE PF/INJ 5 MG/5 ML SDV IV ONE (00:45)
[2017-02-01] MEDS: IPRATROPIUM/ALBUTEROL 0.5-2.5 MG/3 ML AMPUL NEB SCH ×3 (02:46→13:34)
[2017-02-01 06:04] LABS: HEMATOCRIT 25.1 % (36.0-47.0); HGB HCT DIFFERENCE -1.4; MEAN CORPUSCULAR HEMOGLOBIN 25.9 pg (27.0-33.4); MEAN CORPUSCULAR HGB CONC 31.4 g/dL (32.0-36.0); MEAN CORPUSCULAR VOLUME 83 fl (80-97); RED BLOOD COUNT 3.05 10^6/uL (3.72-5.28); RED CELL DISTRIBUTION WIDTH 16.5 % (11.5-14.0); WHITE BLOOD COUNT 8.7 10^3/uL (4.0-10.5)
[2017-02-01 06:17] LABS: BLOOD UREA NITROGEN 10 mg/dL (7-20); CALCIUM 9.2 mg/dL (8.4-10.2); CHLORIDE 87 mmol/L (98-107); CREATININE RESULT 0.41 mg/dL (0.52-1.25); GLUCOSE 90 mg/dL (75-110); POTASSIUM 4.2 mmol/L (3.6-5.0); SODIUM 137.1 mmol/L (137-145)
[2017-02-01 06:29] LABS: ANION GAP 5 (5-19)
[2017-02-01 06:31] LABS: CARBON DIOXIDE 45 mmol/L (22-30)
[2017-02-01 06:42] LABS: BAND NEUTROPHILS % (MANUAL) 4 % (3-5); BASOPHILS % (MANUAL) 0 % (0-2); EOSINOPHILS % (MANUAL) 2 % (0-6); LYMPHOCYTES % (MANUAL) 21 % (13-45); TOTAL CELLS COUNTED 100
[2017-02-01 06:43] LABS: ANISOCYTOSIS 1+; POLYCHROMASIA 1+; TOXIC GRANULATION 1+; TOXIC VACUOLATION PRESENT
[2017-02-01] MEDS: HEPARIN SOD (PORCINE) 5,000 UNIT/ML 1 ML SYRINGE SUBCUT SCH ×2 (06:44→14:44)
[2017-02-01 06:45] LABS: HEMOGLOBIN 7.9 g/dL (12.0-15.5)
[2017-02-01 09:27] LABS: ARTERIAL BLOOD BASE EXCESS 18.4 mmol/L; ARTERIAL BLOOD O2 SATURATION 92.7 % (94-98)
[2017-02-01] MEDS ORDERED: PREDNISONE 5 MG TABLET PO SCH (10:00)
[2017-02-01] MEDS ORDERED: DOCUSATE SODIUM 100 MG CAPSULE PO SCH (10:00)
[2017-02-01 14:02] VITALS: BP 130/71
[2017-02-01] MEDS ORDERED: ALPRAZOLAM 0.5 MG TABLET PO PRN (15:06)
--- NOTE | 2017-02-01 18:24 | PDOC PROGRESS REPORT ---
Subjective Progress Note for:: 02/01/17 Subjective:: Patient is currently encephalopathic and on BiPAP and unable to provide any review of systems. Her case is discussed with her daughter and his grandson as well as her friends who were at bedside. Physical Exam Vital Signs: Temp Pulse Resp BP Pulse Ox 98.4 F 106 H 22 H 130/71 H 93 02/01/17 12:30 02/01/17 14:00 02/01/17 13:45 02/01/17 12:30 02/01/17 13:45 Intake & Output 01/31/17 02/01/17 02/02/17 06:59 06:59 06:59 Intake Total 0 Output Total 700 Balance -700 Weight 56.7 kg Exam: General: Frail-appearing, disoriented, mild respiratory distress HEENT: AT/NC, PERRL, EOMI, oropharynx is moist, pink, no scleral icterus, no conjunctival injection Neck: No JVD, trachea midline Chest:Occasional rhonchi bilaterally CV: Tachycardic regular rate and rhythm, normal S1 and S2, no murmur, rub, or gallop Abdomen: Soft, nontender to palpation, nondistended, active bowel sounds; no rebound, rigidity, or guarding Extremities: No cyanosis, clubbing or edema Results Laboratory Results: 02/01/17 05:28 02/01/17 05:28 01/31/17 02/01/17 02/01/17 20:25 05:28 05:28 WBC 8.7 RBC 3.05 L Hgb 7.9 L Hct 25.1 L MCV 83 MCH 25.9 L MCHC 31.4 L RDW 16.5 H Plt Count 509 H Seg Neutrophils % Not Reportable Lymphocytes % Not Reportable Monocytes % Not Reportable Eosinophils % Not Reportable Basophils % Not Reportable Absolute Neutrophils Not Reportable Absolute Lymphocytes Not Reportable Absolute Monocytes Not Reportable Absolute Eosinophils Not Reportable Absolute Basophils Not Reportable Carbonic Acid 3.01 H HCO3/H2CO3 Ratio 15:1 ABG pH 7.29 L ABG pCO2 100.1 H* ABG pO2 84.3 ABG HCO3 47.2 H ABG O2 Saturation 94.3 ABG Base Excess 17.5 FiO2 3L Sodium 137.1 Potassium 4.2 Chloride 87 L Carbon Dioxide 45 H* Anion Gap 5 BUN 10 Creatinine 0.41 L Est GFR ( Amer) > 60 Est GFR (Non-Af Amer) > 60 Glucose 90 Calcium 9.2 02/01/17 09:08 WBC RBC Hgb Hct MCV MCH MCHC RDW Plt Count Seg Neutrophils % Lymphocytes % Monocytes % Eosinophils % Basophils % Absolute Neutrophils Absolute Lymphocytes Absolute Monocytes Absolute Eosinophils Absolute Basophils Carbonic Acid 2.03 H HCO3/H2CO3 Ratio 22:1 ABG pH 7.44 ABG pCO2 67.3 H ABG pO2 65.5 L ABG HCO3 44.7 H ABG O2 Saturation 92.7 L ABG Base Excess 18.4 FiO2 BI-PAP 35% Sodium Potassium Chloride Carbon Dioxide Anion Gap BUN Creatinine Est GFR ( Amer) Est GFR (Non-Af Amer) Glucose Calcium Impressions: Chest X-Ray 01/31/17 16:23 IMPRESSION: Bibasilar densities as noted above. Assessment & Plan - Diagnosis (1) Acute on chronic respiratory failure with hypoxia and hypercapnia Is this a current diagnosis for this admission?: YesPlan: At this time, I had a lengthy conversation with patient's friends as well as family regarding her overall condition and what would be her wants and desires. At this time, they are amenable to unlikely to institute comfort measures for this patient. Patient will have morphine and Ativan as required and will add atropine drops sublingually for secretions. Patient is already a DNR/DNI. Pastoral services were offered. (2) Dementia Qualifiers: Dementia type: Parkinson's disease Dementia behavioral disturbance: with behavioral disturbance Qualified Code(s): G20 - Parkinson's disease ; F02.81 - Dementia in other diseases classified elsewhere with behavioral disturbance Is this a current diagnosis for this admission?: Yes (3) Lung mass Is this a current diagnosis for this admission?: Yes (4) Pneumonia Qualifiers: Aspiration pneumonia type: unspecified Laterality: unspecified laterality Lung location: unspecified part of lung Is this a current diagnosis for this admission?: No (5) Do not resuscitate Is this a current diagnosis for this admission?: Yes (6) Anemia of chronic disease Is this a current diagnosis for this admission?: Yes (7) Aspiration pneumonia Qualifiers: Aspiration pneumonia type: unspecified Laterality: bilateral Lung location: lower lobe of lung Qualified Code(s): J69.0 - Pneumonitis due to inhalation of food and vomit Is this a current diagnosis for this admission?: Yes (8) COPD exacerbation Is this a current diagnosis for this admission?: Yes (9) Compression fracture Is this a current diagnosis for this admission?: Yes (10) Dysphagia, unspecified Qualifiers: Dysphagia type: unspecified Qualified Code(s): R13.10 - Dysphagia, unspecified Is this a current diagnosis for this admission?: Yes (11) Hypertension Qualifiers: Hypertension type: essential hypertension Qualified Code(s): I10 - Essential (primary) hypertension Is this a current diagnosis for this admission?: Yes (12) Mass of right kidney Is this a current diagnosis for this admission?: Yes (13) Chronic indwelling Cade catheter Is this a current diagnosis for this admission?: Yes - Time Time Spent with patient: 35 or more minutes Medications reviewed and adjusted accordingly: Yes
[2017-02-01] MEDS ORDERED: ONDANSETRON HCL INJ/PF 4 MG/2 ML SDV IV ONE (18:39)
[2017-02-01] MEDS ORDERED: ONDANSETRON HCL INJ/PF 4 MG/2 ML SDV IV PRN (18:39)
[2017-02-01] MEDS ORDERED: ONDANSETRON HCL INJ/PF 4 MG/2 ML SDV ONE (18:59)
[2017-02-01] MEDS: MORPHINE SULFATE 10 MG/ML INJ IV PRN (19:03)
[2017-02-01] MEDS: LORAZEPAM INJ 2 MG/1 ML VIAL IV PRN (21:51)
[2017-02-02] MEDS: MORPHINE SULFATE 10 MG/ML INJ IV PRN (03:42)
[2017-02-02] MEDS: LORAZEPAM INJ 2 MG/1 ML VIAL IV PRN (05:06)
[2017-02-02] MEDS ORDERED: LEVOFLOXACIN 750 MG/D5W RTU 750 MG/150 ML RTUPB IV SCH (10:00)
[2017-02-02] MEDS ORDERED: CARBOXYMETHYLCELLULOSE SOD 0.5% 0.4 ML DROPERETTE OU PRN (10:53)
[2017-02-02] MEDS ORDERED: MORPHINE SULFATE 10 MG/ML INJ IV PRN (10:54)
[2017-02-02] MEDS ORDERED: SCOPOLAMINE HYDROBROMIDE 1.5 MG PATCH.TD72 TD ONE (11:30)
[2017-02-02] MEDS ORDERED: FENTANYL 12 MCG/HR PATCH.TD72 TD ONE (11:45)
[2017-02-02] MEDS: ATROPINE SULFATE 1% OPH SOLN 5 ML BOTTLE SL PRN ×3 (11:54→23:33)
[2017-02-02] MEDS ORDERED: LORAZEPAM INJ 2 MG/1 ML VIAL IV ONE (12:00)
[2017-02-02] MEDS ORDERED: ONDANSETRON HCL INJ/PF 4 MG/2 ML SDV IV PRN (13:22)
--- NOTE | 2017-02-02 15:40 | PDOC PROGRESS REPORT ---
Subjective Progress Note for:: 02/02/17 Subjective:: Patient remains uncomfortable measures. Her family is at bedside. No acute events overnight. Physical Exam Vital Signs: Temp Pulse Resp BP Pulse Ox 98.4 F 120 H 22 H 130/71 H 93 02/01/17 12:30 02/02/17 09:04 02/01/17 13:45 02/01/17 12:30 02/01/17 13:45 Intake & Output 02/01/17 02/02/17 02/03/17 06:59 06:59 06:59 Intake Total 0 16 Output Total 700 Balance -700 16 Weight 56.7 kg Exam: General: Frail-appearing, acute, and chronically ill-appearing, mild-moderate respiratory distress HEENT: AT/NC, oropharynx is dry, pink Chest:Occasional rhonchi bilaterally CV: Tachycardic regular rate and rhythm, normal S1 and S2, no murmur, rub, or gallop Abdomen: Soft, nontender to palpation, mildly distended, active bowel sounds Extremities: No cyanosis, clubbing or edema Results Laboratory Results: 02/01/17 05:28 02/01/17 05:28 Impressions: Chest X-Ray 01/31/17 16:23 IMPRESSION: Bibasilar densities as noted above. Assessment & Plan - Diagnosis (1) Acute on chronic respiratory failure with hypoxia and hypercapnia Is this a current diagnosis for this admission?: YesPlan: Patient will have morphine and Ativan as required and will add atropine drops sublingually for secretions. Will initiate patient on fentanyl patch and scopolamine patch. Patient is already a DNR/DNI. Pastoral services were offered. (2) Dementia Qualifiers: Dementia type: Parkinson's disease Dementia behavioral disturbance: with behavioral disturbance Qualified Code(s): G20 - Parkinson's disease ; F02.81 - Dementia in other diseases classified elsewhere with behavioral disturbance Is this a current diagnosis for this admission?: Yes (3) Lung mass Is this a current diagnosis for this admission?: Yes (4) Pneumonia Qualifiers: Aspiration pneumonia type: unspecified Laterality: unspecified laterality Lung location: unspecified part of lung Is this a current diagnosis for this admission?: No (5) Do not resuscitate Is this a current diagnosis for this admission?: Yes (6) Anemia of chronic disease Is this a current diagnosis for this admission?: Yes (7) Aspiration pneumonia Qualifiers: Aspiration pneumonia type: unspecified Laterality: bilateral Lung location: lower lobe of lung Qualified Code(s): J69.0 - Pneumonitis due to inhalation of food and vomit Is this a current diagnosis for this admission?: Yes (8) COPD exacerbation Is this a current diagnosis for this admission?: Yes (9) Compression fracture Is this a current diagnosis for this admission?: Yes (10) Dysphagia, unspecified Qualifiers: Dysphagia type: unspecified Qualified Code(s): R13.10 - Dysphagia, unspecified Is this a current diagnosis for this admission?: Yes (11) Hypertension Qualifiers: Hypertension type: essential hypertension Qualified Code(s): I10 - Essential (primary) hypertension Is this a current diagnosis for this admission?: Yes (12) Mass of right kidney Is this a current diagnosis for this admission?: Yes (13) Chronic indwelling Cade catheter Is this a current diagnosis for this admission?: Yes - Time Time Spent with patient: 15-24 minutes Medications reviewed and adjusted accordingly: Yes
[2017-02-02] MEDS ORDERED: LORAZEPAM INJ 2 MG/1 ML VIAL IV SCH (22:00)
--- NOTE | 2017-02-28 09:51 | Death Summary ---
Summary Date : 02/03/17 Autopsy: No Resuscitation Status: Comfort Measures Only - Final Diagnosis (1) Acute on chronic respiratory failure with hypoxia and hypercapnia Is this a current diagnosis for this admission?: Yes (2) Dementia Is this a current diagnosis for this admission?: Yes (3) Lung mass Is this a current diagnosis for this admission?: Yes (4) Pneumonia Is this a current diagnosis for this admission?: No (5) Anemia of chronic disease Is this a current diagnosis for this admission?: Yes (6) Aspiration pneumonia Is this a current diagnosis for this admission?: Yes (7) COPD exacerbation Is this a current diagnosis for this admission?: Yes (8) Compression fracture Is this a current diagnosis for this admission?: Yes (9) Dysphagia, unspecified Is this a current diagnosis for this admission?: Yes (10) Hypertension Is this a current diagnosis for this admission?: Yes (11) Mass of right kidney Is this a current diagnosis for this admission?: Yes (12) Chronic indwelling Cade catheter Is this a current diagnosis for this admission?: Yes (13) Do not resuscitate Is this a current diagnosis for this admission?: Yes Hospital Course:: VINCE ALVARADO was a 89 year old female with a past medical history of lung mass, blindness, COPD, with recurrent aspiration, indwelling Cade, anxiety, and dementia. Patient been her usual state of health until approximately 24 hours prior to presentation. She had severe delirium requiring sedation of an unknown agent resulting in profound sedation and subsequently unarousable prompting her evaluation emergency room. In the emergency room she has evidence for hypercapnia with a bicarbonate of 44, she is placed on BiPAP. Patient found to have a PCO2 of 100.1. Patient tolerated Bipap poorly and discussion about end of life goals was had with family. They elected to place her on comfort measures. Patient was given morphine, ativan, and atropine. Patient .
== END 2017-02-03 07:02 | DRG 189 ==
LOC: ER 15:25 → EH 20:19 → 4S 23:26
PROVIDERS: ADMIT Internal Medicine; ATTEND Internal Medicine
PROC: 5A09357 Assistance with Respiratory Ventilation, Less than 24 Consecutive Hours, Continuous Positive Airway Pressure (ICD-10-PCS; principal; 2017-01-31)
DX: J96.21 Acute and chronic respiratory failure with hypoxia (principal); J69.0 Pneumonitis due to inhalation of food and vomit; J44.0 Chronic obstructive pulmonary disease with (acute) lower respiratory infection; F02.81 Dementia in other diseases classified elsewhere, unspecified severity, with behavioral disturbance; M48.50XA Collapsed vertebra, not elsewhere classified, site unspecified, initial encounter for fracture; J44.1 Chronic obstructive pulmonary disease with (acute) exacerbation; J96.22 Acute and chronic respiratory failure with hypercapnia; H54.0 Blindness, both eyes; Z51.5 Encounter for palliative care; F41.9 Anxiety disorder, unspecified; I10 Essential (primary) hypertension; G43.909 Migraine, unspecified, not intractable, without status migrainosus; K21.9 Gastro-esophageal reflux disease without esophagitis; K44.9 Diaphragmatic hernia without obstruction or gangrene; M19.90 Unspecified osteoarthritis, unspecified site; F32.9 Major depressive disorder, single episode, unspecified; G31.83 Neurocognitive disorder with Lewy bodies; D63.8 Anemia in other chronic diseases classified elsewhere; R91.8 Other nonspecific abnormal finding of lung field; N28.89 Other specified disorders of kidney and ureter; Z99.81 Dependence on supplemental oxygen; Z66 Do not resuscitate; Z88.6 Allergy status to analgesic agent; Z79.82 Long term (current) use of aspirin; Z79.899 Other long term (current) drug therapy; Z82.49 Family history of ischemic heart disease and other diseases of the circulatory system
CPT/HCPCS: 36415; 36600; 71010; 80048; 80053; 81001; 82803; 83690; 85025; 87040; 94660; 96365; 99285; J1644; J1956; J2060; J2270; J3490; J7030; J7512; J7620